=== PATIENT | female | born 1975 | race Two or more races ===

== ENCOUNTER → 2023-12-01 15:02 | Outpatient (REF) | payer OTHER, SELFPAY ==
--- NOTE | 2023-12-01 15:06 | CA_ITS ---
Transthoracic Echocardiogram Patient (Last, First, Middle): Nery Kingsley, Gender: Female Date of : 1975 Age: 48 Procedure Date: 12/01/2023 Procedure Type: Transthoracic Echocardiogram Location: OP Height: 162.56 cm Weight: 83.92 kg BSA: 1.89 m2 Heart Rate: bpm BP: 146 / 88 mmHg Community Relations Manager: ARUNA Referring MD: Bello Rodriguez COLLEGE COACH Symptoms: I10 HTN NORA.2 PALPITATIONS Study Quality: Adequate ECG Rhythm: Sinus Conclusions: - The left ventricular systolic function is normal. The calculated ejection fraction is 64% by biplane method. - No obvious valvular pathology seen on this study. - There is mild dilatation of the ascending aorta measuring 3.90 cm. Findings Left Ventricle Normal left ventricular cavity size. There is normal left ventricular wall thickness. The left ventricular systolic function is normal. The calculated ejection fraction is 64% by biplane method. There is no evidence of regional wall motion abnormalities. LV peak GLS -18.9%. Right Ventricle Normal right ventricular cavity size and systolic function. Atria Both atria are normal in size. Aortic Valve There is a normal trileaflet aortic valve. There is no aortic valve stenosis. There is no aortic valve regurgitation. Mitral Valve The mitral valve appears normal. There is trace mitral valve regurgitation. There is no mitral valve stenosis. Pulmonic Valve The pulmonic valve is likely normal. Tricuspid Valve Normal tricuspid valve structure. There is trace tricuspid valve regurgitation. There is no evidence of pulmonary hypertension. Great Vessels The aortic arch is normal in size. There is mild dilatation of the ascending aorta measuring 3.90 cm. Venous The inferior vena cava is normal in size and collapses greater than 50% with inspiration. Pericardium/Pleural There is no evidence of pericardial effusion. Prior Study Comparison No prior study available for comparison. Recommendations, Care & Conclusions No obvious valvular pathology seen on this study. Measurements 2D Linear Measurements IVSd: 0.80 0.6-0.9/0.6-1.0 cm LVIDd: 4.67 3.9-5.3/4.2-5.9 cm LVIDd Index: 2.47 2.4-3.2/2.2-3.1 cm/m2 LVIDs: 3.03 2.0-3.6 cm LVPWd: 0.80 0.7-1.1 cm LA Diam: 3.20 2.7-3.8/3.0-4.0 cm LAIDs Index: 1.69 1.5-2.3 cm/m2 LV Mass: 150.92 67-162/88-224 g LV Mass Index: 79.85 43-95/49-115 g/m2 LVOT Diam: 2.10 3.0+(-)1.3 cm 2D Systolic Function EF 4C: 62.00 >55% EF 2C: 66.20 >55% EF BiP: 64.10 >55% Mitral Valve MV Pk E: 0.51 MV PK A: 0.45 MV Decel Time: 279.00 E/A: 1.10 E'Lateral: 10.70 E'Medial: 7.29 E/E' Med: 7.10 E/E' Lat: 4.80 PHT: 82.00 MVA PHT: 2.68 Decel [place]: 1.84 Aortic Valve AoV Pk Kody: 1.27 AoV Mn Kody: 0.84 AoV VTI: 0.31 AoV Pk Grad: 6.00 Aov Mn Grad: 3.00 BENSON Cont.VTI: 2.62 LVOT LVOT Pk Kody: 1.07 LVOT Mn Kody: 0.68 LVOT VTI: 0.24 LVOT Pk Grad: 5.00 LVOT Mn Grad: 2.00 LVOT Diam: 2.10 LVOT Area: 3.46 Diastolic Function MV Pk E: 0.51 MV Pk A: 0.45 E/A: 1.10 E'Medial: 7.29 E/E' Med: 7.10 E' Laterial: 10.70 E/E' Lat: 4.80 Right Ventricle TAPSE (mm): 22.00 TVS' Kody: 9.90 Tricuspid Valve TR Pk Kody: 2.05 TR Pk Grad: 17.00 RA Press: 3.00 RVSP: 20.00 Great Vessels Aorta Sinus of Valsalva: 3.87 2.0-3.[address] [place]: 2.80 1.7-3.4 cm Ao Asc: 3.90 2.1-3.4 cm Ao Arch: 2.90 Updated in Other Vendor System with Status of Final Yfn Browne MD electronically signed on 12/03/2023 9:23:05 AM with status of Final
== END ==
LOC: HO.CARD 15:02
PROVIDERS: PCP Nurse Practitioner Family; Visit Provider Nurse Practitioner Family
DX: R00.2 Palpitations (principal); I10 Essential (primary) hypertension
CPT/HCPCS: 93306; 93356

== ENCOUNTER → 2023-12-01 15:06 | Outpatient (BNV) | payer OTHER, SELFPAY | PROVIDERS: PCP Nurse Practitioner Family; Visit Provider Internal Medicine | DX: R00.2 Palpitations (principal); I10 Essential (primary) hypertension | CPT/HCPCS: 93306 ==

== ENCOUNTER 2023-12-02 15:46 | Outpatient (REF) | payer OTHER, SELFPAY ==
--- NOTE | ~2023-12-02 | MR_ITS ---
EXAMINATION: MRI PELVIS WITHOUT CONTRAST CLINICAL INFORMATION: Reason for Exam URETHRAL DIVERTICULUM COMPARISON: No pertinent priors currently available. TECHNIQUE: Multiple routine MRI sequences through the pelvis were obtained without intravenous contrast. FINDINGS: UTERUS: The uterus is anteverted. The uterus measures 8.9 x 4.4 x 5.9 cm. The endometrial stripe 3 mm in thickness. Junctional zone is preserved. There are few fibroids present. Left subserosal fibroid measures 2.8 x 2.7 x 2.8 cm. Posterior subserosal fibroid measures 1.6 x 1.8 x 1.4 cm. CERVIX: Few cervical nabothian cysts. VAGINA: Unremarkable. RIGHT OVARY: Right adnexal cyst measures 3.2 x 2.5 x 2.2 cm. LEFT OVARY: Not visualized. KIDNEYS: Two normally positioned kidneys are seen. No hydronephrosis. BLADDER: Unremarkable. No evidence of urethral diverticulum. PELVIC FREE FLUID: No free fluid or ascites. LYMPH NODES: No pathologically enlarged lymph nodes. MR/MR pelvis wo con IMPRESSION: Fibroid uterus. No evidence of urethral diverticulum. Right adnexal cyst measures 3.2 x 2.5 x 2.2 cm. Findings are overwhelmingly likely to represent a benign functional cyst. No follow-up imaging recommended.
== END 2023-12-02 15:47 | disposition home or self-care (01) ==
LOC: HO.MRI 15:46
PROVIDERS: PCP Nurse Practitioner Family; Visit Provider Nurse Practitioner Family
DX: N36.1 Urethral diverticulum (principal)
CPT/HCPCS: 72195

== ENCOUNTER 2024-02-28 14:55 | Outpatient (AMB) | payer OTHER, SELFPAY ==
--- NOTE | 2024-02-28 14:56 | A.OFFVIS_ITS ---
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 She has a pleasant 49-year-old who has longstanding history of hypertension. She said many years ago she would hypertension was treated with lisinopril and did well over time and then lost 40 lb of weight and a blood pressure got better control and she came of lisinopril therapy. However more recently she gained weight back again and started noticing symptoms of palpitation elevated blood pressure. She was then started on lisinopril therapy but without much effect or a month and then amlodipine was added to her regimen. A blood pressure is not much better controlled. Symptoms of palpitations have dissipated. When she is to get palpitation she describes that these palpitation would happen randomly even including rest when she was relaxed and would have rapid heart rate up to 130-140 beats per minute recorded by heart rate monitor on her watch. Symptoms then also would subside suddenly. The symptoms have now subsided and she feels well. She has no exertional symptoms. Denies any symptoms of exertional chest pain, shortness of breath. No lightheadedness, syncope. No recent changes in his systemic health. She had echocardiogram done in November which showed normal LV systolic function without valvular abnormality with mildly dilated ascending aorta at 3.9 cm. No family history of ascending aortic aneurysm. [facility] Medical History (Updated 02/28/24 @ 15:25 by Tim Bhandari MD) HTN (hypertension) Ascending aorta enlargement Review of Systems Const Denies chills, Denies daytime sleepiness, Denies fatigue, Denies fever(s), Denies frequent falls, Denies poor appetite, Denies snoring, Denies stops breathing during sleep, Denies weakness, Denies weight gain and Denies weight loss Eyes Denies loss of vision ENT Denies dizziness and Denies hearing loss Card Denies chest pain, Denies claudication, Denies leg edema, Denies lightheadedness, Denies palpitations, Denies dyspnea, Denies dyspnea on exertion and Denies orthopnea Resp Denies cough, Denies excessive phlegm production, Denies dyspnea, Denies dyspnea on exertion, Denies snoring and Denies wheezing GI Denies abdominal pain, Denies hematochezia, Denies change in bowel habits, Denies nausea and Denies vomiting Denies urinary frequency and Denies dysuria Musc Denies arthralgias, Denies muscle weakness, Denies numbness and Denies other (frequent falls) Skin/Breast Denies nail changes and Denies rash Neuro Denies Abnormal speech present, Denies dizziness, Denies frequent falls, Denies loss of vision, Denies memory loss, Denies numbness and Denies weakness Psych Denies depression and Denies memory loss Endo Denies fatigue and Denies palpitations Zev/Lymph Reports easy bruising and Reports other (anemia) Aller/Immun Denies wheezing Physical Exam Vital Signs: Last Vital Signs Pulse 83 02/28/24 14:57 BP 108/70 02/28/24 14:57 BMI result Body Mass Index 31.0 Neuro Speech: No Abnormal speech present Office Procedures EKG Details: EKG shows normal sinus rhythm with normal EKG 98161-[id number], Complete Assessment & Plan Assessment & Plan (1) HTN (hypertension): Code(s): I10 - Essential (primary) hypertension Category: Medical Plan: Patient with longstanding history of hypertension which appears to be weight related. Since then she has been treated and currently a blood pressure is very well optimized on lisinopril and amlodipine therapy. Advised for now to continue current therapy. As she continues to lose weight and has healthy lifestyle modifications and if blood pressure gets lower eventually lisinopril can be tapered. Advised to continue monitor blood pressure at home maintain a log. Goal blood pressure less than 20 systolic. Low-salt diet was discussed. Stress mitigation strategies were discussed she understands management well. (2) Ascending aorta enlargement: Code(s): I77.89 - Other specified disorders of arteries and arterioles Category: Medical Plan: Noted mildly enlarged ascending aorta at 3.9 cm. She has no clear family history of ascending aortic aneurysm. Most likely hypertension related. Management of this was discussed. Continue aggressive blood pressure management as above. Advised to avoid sudden strenuous isometric exercise. She does not require any surgical intervention at this point time. Will need annual echocardiogram for surveillance. (3) Palpitations: Code(s): R00.2 - Palpitations Plan: Symptoms of palpitation which has not dissipated. Could represent SVT although there are no documented EKGs during this time. We discussed about low yield for further workup at this point time given her symptoms have improved. Advised to consider smart phone based EKG device if her symptoms were to recur to establish diagnosis. Avoidance of stimulants was discussed. (4) Preoperative cardiovascular examination: Code(s): Z01.810 - Encounter for preprocedural cardiovascular examination Plan: Preoperative cardiovascular risk stratification prior to gynecologic surgery under sedation. This is consider low to intermediate risk surgery. She has no active symptoms and has more than 4 Mets of physical activity and capacity. No further workup is indicated. She is optimized to undergo surgery with low risk for perioperative cardiovascular morbidity mortality. Continue her antihypertensives in the perioperative time. Will follow up in the clinic in 1 year's time after an echocardiogram. Thank you for allowing me to partake in her care Coding Level of Care Code New Pt Level 4 (15895) Diagnoses HTN (hypertension) I10 Ascending aorta enlargement I77.89 Palpitations R00.2 Preoperative cardiovascular examination Z01.810 CPT Codes EKG - CPT: 15482-[id number], Complete ([id number])
[2024-02-28 14:57] VITALS: BP 108/70; PULSE 83; BMI 31.0
== END 2024-02-28 15:27 | disposition home or self-care (01) ==
PROVIDERS: PCP Nurse Practitioner Family; Visit Provider Internal Medicine Cardiovascular Disease
DX: I10 Essential (primary) hypertension (principal); I77.89 Other specified disorders of arteries and arterioles; R00.2 Palpitations; Z01.810 Encounter for preprocedural cardiovascular examination
CPT/HCPCS: 93010; 99204

== ENCOUNTER → 2024-02-28 14:55 | Outpatient (BNVA) | payer OTHER, SELFPAY | PROVIDERS: PCP Nurse Practitioner Family; Visit Provider Internal Medicine Cardiovascular Disease | DX: Z01.810 Encounter for preprocedural cardiovascular examination (principal); I10 Essential (primary) hypertension; I77.89 Other specified disorders of arteries and arterioles; R00.2 Palpitations | CPT/HCPCS: 93005 ==

== ENCOUNTER 2024-12-14 09:36 | Outpatient (REF) | payer OTHER, SELFPAY ==
--- OUTSIDE RECORDS SUMMARY | 2024-12-14 11:26 | XMS_ITS | Clinical Summary ---
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 [employer] Name Role Phone Unavailable Primary Care Provider [...] Description 01/14/2025 2:00 PM EDT Appointment [facility] Ultrasound [address] [place] [phone] Health Maintenance Due Date Last Done Comments [...] Procedure Name Priority Date/Time Associated Diagnosis Comments [facility] SCREENING DIGITAL Routine 01/06/2024 3:33 PM EDT Encounter for screening mammogram for malignant neoplasm of breast from Last 3 Months or Most Recently Relevant to Health Maintenance Results * [facility] SCREENING DIGITAL (01/06/2024 3:33 PM EDT) Anatomical Region Laterality Modality Mammography 01/06/2024 3:10 PM EDT Narrative 01/06/2024 3:33 PM EDT [facility] Diagnostic Imaging Department [address] [place] [address] Patient: ??ROBERTA,NU ?/Age/Sex: 1975 - - Unit#: ??[id number] ? Location/Status: ??SPDIMAM/REG CLI ? Mnemonic/Ordering Site: ??DIGSC/SPMAM Ordering Physician: ??SAM LARKIN MD Gautam Screening Digital - 01/06/24 - 1521 Report Status:Signed EXAM: [facility] Screening Digital EXAM DATE AND TIME: 01/06/2024 3:22 PM HISTORY: ??Annual screening COMPARISON: ??Multiple exams dating back to 2016 TECHNIQUE: Bilateral digital breast tomosynthesis was performed in the CC and MLO projections. Computer aided detection with Novavax 3D 3.1 was employed. TISSUE DENSITY: b. [...] Procedure Note Melissa Tillman MD - 06/11/2024 [facility] Diagnostic Imaging Department [address] [place] [address] Patient: KINGSLEYNU/Age/Sex: 1975 - 48 - F Unit#: [id number] Location/Status: SPDIMAM/REG CLI Mnemonic/Ordering Site: DIGSC/SPMAM Ordering Physician: SAM LARKIN MD Gautam Screening Digital - 01/06/24 - 1521 Report Status:Signed EXAM: [facility] Screening Digital EXAM DATE AND TIME: 01/06/2024 3:22 PM HISTORY: Annual screening COMPARISON: Multiple exams dating back to 2016 TECHNIQUE: Bilateral digital breast tomosynthesis was performed in the CCand MLO projections. Computer aided detection with Novavax 3D 3.1was employed. TISSUE DENSITY: b. There [...] Most Recently Relevant to Health Maintenance Insurance [facility]
[2024-12-14 14:31] LABS: Influenza A PCR POSITIVE (Negative); Influenza B PCR NEGATIVE (Negative); Resp Syncy Virus RNA Qual PCR NEGATIVE (Negative); SARS COV2 PCR INHOUSE NEGATIVE (Negative)
== END 2024-12-14 09:37 | disposition home or self-care (01) ==
LOC: HO.LAB 09:36
PROVIDERS: PCP Nurse Practitioner Family; Visit Provider Physician Assistant
DX: B34.9 Viral infection, unspecified (principal); R05.8 Other specified cough
CPT/HCPCS: 0241U

== ENCOUNTER 2024-12-14 09:36 | Outpatient (AMB) | payer OTHER, SELFPAY ==
--- OUTSIDE RECORDS SUMMARY | 2024-12-14 10:11 | XMS_ITS | Clinical Summary ---
Author Organization [employer] [facility] ity Address [address] [place] [address] Care Team Providers Care Garden Consultant Name Role Phone Unavailable Primary Care Provider Unavailabl e Social History Tobacco Use Types Packs/Day Years Used Date Smoking Tobacco: Never Assessed Comments Unknown Sex and Gender Information Value Date Recorded Sex Assigned at Not on file Legal Sex Female 6:15 PM EST Gender Identity Not on file Sexual Orientation Not on file Plan of Treatment Upcoming Encounters Date Type Department Care Team (Late st Contact Info) Description 01/14/2025 2:00 PM EDT Appointment [facility] Ultrasound [address] [place] [phone] Health Maintenance Due Date Last Done Comments COVID-19 Vaccine (#1) 02/21/1980 DTaP,Tdap,and Td Vaccines (1 - Tdap) 1994 Pneumococcal Vaccine: Pediatrics (0 to 5 Years) and At-Risk Patients (6 to 64 Years) (1 of 2 - PCV) 1994 Cervical Cancer Screening: Pap Smear 02/21/1996 Cholesterol Screening (Lipid Panel) 10/06/2022 Colorectal Cancer Screening: Colonoscopy 10/06/2022 Depression Screening 10/06/2022 HIV Screening 10/06/2022 Hepatitis C Screening 10/06/2022 Social Influencers of Health Screening 10/06/2022 Influenza Vaccine (#1) 2024 Breast Cancer Screening 01/05/2026 01/06/20 24, 12/29/2022, 12/20/2021, Additional history exists Hepatitis B Vaccines Completed 03/13/2020, 01/09/2020, 11/05/2019 HIB Vaccines Aged Out No longer eligi ble based on patient's age to complete this topic HPV Vaccines Aged Out No longer eligi ble based on patient's age to complete this topic Hepatitis A Vaccines Aged Out No long er eligible based on patient's age to complete this topic IPV Vaccines Aged Out No longer eligi ble based on patient's age to complete this topic MMR Vaccines Aged Out No longer eligi ble based on patient's age to complete this topic Meningococcal ACWY Vaccine Aged Out N o longer eligible based on patient's age to complete this topic Meningococcal B Vacine Aged Out No lo nger eligible based on patient's age to complete this topic RSV Immunization Patients Under 20 months Aged Out No longer eligible based on patient's age to complete this topic Varicella Vaccines Aged Out No longer eligible based on patient's age to complete this topic Procedures Procedure Name Priority Date/Time Associated Diagnosis Comments [facility] SCREENING DIGITAL Routine 01/06/2024 3:33 PM EDT Encounter for screening mammogram for malignant neoplasm of breast from Last 3 Months or Most Recently Relevant to Health Maintenance Results * [facility] SCREENING DIGITAL (01/06/2024 3:33 PM EDT) Anatomical Region Laterality Modality Mammography 01/06/2024 3:10 PM EDT Narrative 01/06/2024 3:33 PM EDT [facility] Diagnostic Imaging Department [address] [place] [address] Patient: ??ROBERTA,NU ?/Age/Sex: 1975 - - Unit#: ??[id number] ? Location/Status: ??SPDIMAM/REG CLI ? Mnemonic/Ordering Site: ??DIGSC/SPMAM Ordering Physician: ??SAM LARKIN MD Gautam Screening Digital - 01/06/24 - 1521 Report Status:Signed EXAM: [facility] Screening Digital EXAM DATE AND TIME: 01/06/2024 3:22 PM HISTORY: ??Annual screening COMPARISON: ??Multiple exams dating back to 2016 TECHNIQUE: Bilateral digital breast tomosynthesis was performed in the CC and MLO projections. Computer aided detection with Mohive 3D 3.1 was employed. TISSUE DENSITY: b. There are scattered areas of fibroglandular density. FINDINGS: Possible developing asymmetry in the outer left breast seen on the MLO view. No associated calcifications or architectural distortion. ??The right breast is unremarkable. IMPRESSION: Possible developing asymmetry in the outer left breast seen on the MLO view. Recommend diagnostic mammogram of the left breast with spot compression MLO tomographic views. BI-RADS: ??Category 0: Incomplete - Need Additional Imaging Evaluation Dictating Physician: ??MELISSA TILLMAN MD Electronically Signed by: ??MELISSA TILLMAN MD Dic Date/Time: ??01/06/24 1531 Sign date/Time: ??01/06/24 1533 Procedure Note Melissa Tillman MD - 06/11/2024 [facility] Diagnostic Imaging Department [address] [place] [address] Patient: KINGSLEYNU/Age/Sex: 1975 - 48 - F Unit#: [id number] Location/Status: SPDIMAM/REG CLI Mnemonic/Ordering Site: DIGSC/SPMAM Ordering Physician: SAM LARKIN MD Gautam Screening Digital - 01/06/24 - 1521 Report Status:Signed EXAM: [facility] Screening Digital EXAM DATE AND TIME: 01/06/2024 3:22 PM HISTORY: Annual screening COMPARISON: Multiple exams dating back to 2016 TECHNIQUE: Bilateral digital breast tomosynthesis was performed in the CCand MLO projections. Computer aided detection with Mohive 3D 3.1was employed. TISSUE DENSITY: b. There are scattered areas of fibroglandular density. FINDINGS: Possible developing asymmetry in the outer left breast seen on the MLOview. No associated calcifications or architectural distortion. The rightbreast is unremarkable. IMPRESSION: Possible developing asymmetry in the outer left breast seen on the MLOview. Recommend diagnostic mammogram of the left breast with spot compressionMLO tomographic views. BI-RADS: Category 0: Incomplete - Need Additional Imaging Evaluation Dictating Physician: MELISSA TILLMAN MD Electronically Signed by: MELISSA TILLMAN MD Dic Date/Time: 01/06/24 1531 Sign date/Time: 01/06/241532 Sam Crocker MD IMG BI PROCEDURES Final Result from Last 3 Months or Most Recently Relevant to Health Maintenance Insurance [facility]
[2024-12-14 10:13] VITALS: BP 118/80; PULSE 86; TEMP 36.8; O2SAT 98; BMI 30.4
--- NOTE | 2024-12-14 10:13 | AM.OFFWIN_ITS ---
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 Patient Tobacco Use Status: Never used Tobacco Allergies No Known Allergies Allergy (Verified 12/14/24 10:14) Do you need a note to return to daycare/school/sports/work: Yes HPI HPI Comments History of Present Illness Details History - The patient is a 49-year-old female pr esenting with a cough. - Vomiting and diarrhea began six days a go and resolved by 3 days ago. - Cough developed following the resoluti on of gastrointestinal symptoms, persisting over the last 3 days with severity increasing. - Associated symptoms include lightheade dness and throat congestion, especially when supine. - She has not experienced fever or respi ratory distress. - she is not using any OTC medications t o treat her symptoms - There is a known exposure to influenza within the household as her is diagnosed and receiving treatment. Physical Exam General: Cooperative, healthy appearing, comfortable and no acute distress Orientation/consciousness: Patient oriented x3 Limitations: No limitations Head: Normal to inspection Ears: Hearing grossly normal bilaterally, external ears normal and TM's w/cerumen bilaterally Nose: Normal external nose present, Normal nares present and No nasal discharge present Face and sinus: Normal facial exam and Yes sinuses nontender Mouth: Normal oral and palatal mucosa present and moist mucous membranes Throat: Yes tonsils normal, Yes uvula midline. Posterior oropharynx erythema Eyes: Appearance normal, both eyes and all related structures Neck: Normal visual inspection Respiratory: Clear to auscultation bilaterally. Normal respiratory effort, able to speak in complete sentences, Actively coughing, no respiratory distress, not tachypneic, no tripod positioning and no use of accessory muscles Cardiovascular: Regular rate and rhythm. Normal S1 and S2 Skin: No rashes or lesions noted Neuro: Patient oriented x3 Extremities: Normal to inspection and Yes no clubbing, cyanosis or edema [facility] Medical History (Updated 12/14/24 @ 10:30 by Jessica Reinoso PA-C) HTN (hypertension) Ascending aorta enlargement Social History Patient Tobacco Use Status: Never used Tobacco Review of Systems Const All systems reviewed & are unremarkable except as noted in HPI and below Physical Exam Vital Signs: Last Vital Signs Temp 98.2 F 12/14/24 10:13 Pulse 86 12/14/24 10:13 BP 118/80 12/14/24 10:13 Pulse Ox 98 12/14/24 10:13 Oxygen Delivery Method Room Air 12/14/24 10:13 BMI result Body Mass Index 30.4 Assessment & Plan Assessment & Plan (1) Systemic viral illness: Code(s): B34.9 - Viral infection, unspecified Plan: VSS, pt well appearing and PE unremarkable. Considering the patient's symptoms, potential influenza exposure, and as the patient is outside the window for Tamiflu treatment, symptomatic management will be prioritized. A decongestant, Julieta D, alongside Tessalon Perles as a nightly cough suppressant will be prescribed. Ibuprofen can be used to address sore throat inflammation, and Benadryl may be added for its drying effects. The patient will be advised to maintain hydration and ensure rest. Diagnostic testing for influenza, COVID-19, and RSV has been initiated. Patient was informed and verbally consented to the use of an ambient scribe for clinic note documentation during this visit Orders: Orders SARS-CoV2/FLU/RSV Today R09.89 - Other specified symptoms and signs involving the circulatory and respiratory systems Medications: New benzonatate 200 mg PO .qhs PRN 14 caps 0RF cough Coding Level of Care Code New Pt Level 3 (10228) Diagnoses Systemic viral illness B34.9
== END 2024-12-14 10:38 | disposition home or self-care (01) ==
PROVIDERS: PCP Nurse Practitioner Family; Visit Provider Physician Assistant
DX: B34.9 Viral infection, unspecified (principal)

== ENCOUNTER 2025-01-07 14:31 | Outpatient (REF) | payer OTHER, SELFPAY ==
[2025-01-10 11:45] LABS: H Pylori Breath Test Negative (Negative)
== END 2025-01-07 14:32 | disposition home or self-care (01) ==
LOC: HO.LAB 14:31
PROVIDERS: PCP Nurse Practitioner Family; Visit Provider Internal Medicine
DX: K29.70 Gastritis, unspecified, without bleeding (principal); R10.9 Unspecified abdominal pain
CPT/HCPCS: 83013

== ENCOUNTER 2025-01-07 14:31 | Outpatient (AMB) | payer OTHER, SELFPAY ==
--- NOTE | 2025-01-07 14:42 | A.OFFVIS_ITS ---
Vital Signs 01/07/25 14:48 Height 5 ft 4 in Weight 174 lb 2.643 oz BMI 29.9 BP 111/81 Blood Pressure Location Lt brachial Position Sitting Pulse 98 Intake Visit Reasons: Abdominal pain Intake Note: Nery presents in the office as a new patient for abdominal pains. CC: She states that the pains in the stomach are in the LUQ and sometimes in the epigastric region - denies irregular bowel movements. Allergies No Known Allergies Allergy (Verified 01/07/25 14:49) HPI Comments Details: 49 y.o F with subacute onset of abd pain. reports L sided pain that radiates to the R side. No N/V. Did notice some loss of appetite and bloating. Triggers are certain foods. Fasting makes it worse. BMs are ok. Thinks may be related to victoza- took it for half a year last year and then a month after she stopped it, the sx started. Weight loss with victoza but no ongoing unintentional weight loss. Has not been taking anything for this. Has not had CRC screening yet. [facility]LY [facility] Medical History HTN (hypertension) Ascending aorta enlargement Social History Patient Tobacco Use Status: Never used Tobacco Review of Systems Const All systems reviewed & are unremarkable except as noted in HPI and below Physical Exam Vital Signs: Last Vital Signs Pulse 98 01/07/25 14:48 BP 111/81 01/07/25 14:48 BMI result Body Mass Index 29.9 No apparent distress Nonicteric Abdomen soft, nondistended Alert and oriented x3, normal gait Results Reviewed Results Reviewed: US Abd 10/20/24: Suboptimal examination due to overlying bowel gas and poor acoustic windows. Liver: Normal in size and echotexture. No focal lesion is seen. Main portal vein patent with normal hepatopetal direction of flow. Gallbladder: Status post cho lecystectomy. Biliary Tree: No intrahepatic bile duct dilation is identified. Common duct not definitively visualized. Pancreas: Mostly obscured by overlying bowel gas. Spleen: Normal in size and echotexture. Assessment & Plan Assessment & Plan (1) Abdominal pain: Code(s): R10.9 - Unspecified abdominal pain Category: Medical (2) Gastritis: Code(s): K29.70 - Gastritis, unspecified, without bleeding Category: Medical (3) Colon cancer screening: Code(s): Z12.11 - Encounter for screening for malignant neoplasm of colon Category: Medical Plan 1. Abd pain: Ddx includes PUD, gastritis, esophagitis, celiac. Plan: -Labs as below -H Pylori test -PPI trial -EGD to be booked 2. CRC screening: Revere to be booked at the same time as egd. Plan: - PEG prep Rxed and instructions reviewed Follow up after scopes Orders: Orders Complete Blood Count no Diff Today R10.9 - Unspecified abdominal pain Comprehensive Met. Panel Today R10.9 - Unspecified abdominal pain Transglutaminase IgA Today R10.9 - Unspecified abdominal pain FL upper GI w Ba Swallow Today R10.9 - Unspecified abdominal pain H Pylori Breath Test Today K29.70 - Gastritis, unspecified, without bleeding, R10.9 - Unspecified abdominal pain C Reactive Protein Today R10.9 - Unspecified abdominal pain Immunoglobulin A Today R10.9 - Unspecified abdominal pain Medications: New peg 3350-electrolytes 236-22.74-6.74 -5.86 gram (Golytely) as per split prep instructions, until fecal effluent is clear 240 mL PO Q10M 4,000 mL 0RF colonoscopy omeprazole 20 mg PO DAILY 90 days 90 caps 0RF K29.70 - Gastritis, unspecified, without bleeding Coding Level of Care Code New Pt Level 4 (69484) Diagnoses Abdominal pain R10.9 Gastritis K29.70 Colon cancer screening Z12.11
[2025-01-07 14:48] VITALS: BP 111/81; PULSE 98; BMI 29.9
--- OUTSIDE RECORDS SUMMARY | 2025-01-07 17:04 | XMS_ITS | Clinical Summary ---
Author Organization [facility] ity Address [address] [place] [address] Care Team Providers Care Customer Training Specialist Name Role Phone Physician, No Pcp Primary Care Provider Unavaila ble Social History Tobacco Use Types Packs/Day Years [...] Info) Description 01/14/2025 2:00 PM EDT Appointment [facility] Ultrasound [address] [place] [phone] Health Maintenance Due Date Last Done Comments [...] Procedure Name Priority Date/Time Associated Diagnosis Comments [facility] SCREENING DIGITAL Routine 01/06/2024 3:33 PM EDT Encounter for screening mammogram for malignant neoplasm of breast from Last 3 Months or Most Recently Relevant to Health Maintenance Results * [facility] SCREENING DIGITAL (01/06/2024 3:33 PM EDT) Anatomical Region Laterality Modality Mammography 01/06/2024 3:10 PM EDT Narrative 01/06/2024 3:33 PM EDT [facility] Diagnostic Imaging Department [address] [place] [address] Patient: ??KINGSLEY,NU ?/Age/Sex: 1975 - Unit#: ??[id number] ? Location/Status: ??SPDIMAM/REG CLI ? Mnemonic/Ordering Site: ??DIGSC/SPMAM Ordering Physician: ??SAM LARKIN MD Gautam Screening Digital - 01/06/24 - 1521 Report Status:Signed EXAM: [facility] Screening Digital EXAM DATE AND TIME: 01/06/2024 3:22 PM HISTORY: ??Annual screening COMPARISON: ??Multiple exams dating back to 2016 TECHNIQUE: Bilateral digital breast tomosynthesis was performed in the CC and MLO projections. Computer aided detection with Outright 3D 3.1 was employed. TISSUE DENSITY: b. [...] Procedure Note Melissa Tillman MD - 06/11/2024 [facility] Diagnostic Imaging Department [address] [place], [place] [id number] Patient: KINGSLEYNU D.O.B./Age/Sex: 1975 - 48 - F Unit#: [id number] Location/Status: SPDIMAM/REG CLI Mnemonic/Ordering Site: DIGSC/SPMAM Ordering Physician: SAM LARKIN MD Gautam Screening Digital - 01/06/24 - 1521 Report Status:Signed EXAM: [facility]autam Screening Digital EXAM DATE AND TIME: 01/06/2024 3:22 PM HISTORY: Annual screening COMPARISON: Multiple exams dating back to 2016 TECHNIQUE: Bilateral digital breast tomosynthesis was performed in the CCand MLO projections. Computer aided detection with Outright 3D 3.1was employed. TISSUE DENSITY: b. There [...] MD Dic Date/Time: 01/06/24 1531 Sign date/Time: 01/06/24 153 Sam Crocker MD IMG BI PROCEDURES Final Result from Last 3 Months or Most Recently Relevant to Health Maintenance Insurance [facility] Care Teams Customer Training Specialist Relationship Specialty Start Date End Date Physician, No Pcp PCP - General 01/07/25
== END 2025-01-07 15:24 | disposition home or self-care (01) ==
LOC: HO.HGI 14:32
PROVIDERS: PCP Nurse Practitioner Family; Visit Provider Internal Medicine
DX: R10.9 Unspecified abdominal pain (principal); K29.70 Gastritis, unspecified, without bleeding; Z12.11 Encounter for screening for malignant neoplasm of colon
CPT/HCPCS: 99204

== ENCOUNTER 2025-01-08 07:14 | Outpatient (REF) | payer OTHER, SELFPAY ==
[2025-01-08 08:08] LABS: Hematocrit 42.1 % (37.0-47.0); Hemoglobin 13.8 g/dl (12.0-16.0); Mean Corpuscular HGB Conc 32.8 g/dl (31.0-35.0); Mean Corpuscular Hemoglobin 28.4 pg (27.0-33.0); Mean Corpuscular Volume 86.6 fL (80.0-98.0); Mean Platelet Volume 10.6 fL (9.4-12.3); Platelet Count 361 X10*3/uL (160-400); Red Blood Count 4.86 X10*6/uL (4.20-5.50); Red Cell Distribution Width 14.5 % (11.0-16.0); White Blood Count 6.5 X10*3/uL (4.8-10.8)
[2025-01-08 08:46] LABS: Alanine Aminotransferase 21 U/L (0-31); Albumin Level 4.2 g/dL (3.5-5.0); Alkaline Phosphatase 78 U/L (39-117); Anion Gap 12 (12-20); Aspartate Amino Transferase 19 U/L (5-31); Bilirubin Total 0.5 mg/dL (0.0-1.0); Blood Urea Nitrogen 17 mg/dL (9-16); C Reactive Protein 0.32 mg/dL (< or = 0.50); Calcium 9.2 mg/dL (8.4-10.2); Carbon Dioxide 24 mmol/L (22-29); Chloride 108 mmol/L (96-108); Estimated Glomerular Filt Rate > 60; Glucose Random 91 mg/dL (60-115); Potassium 4.1 mmol/L (3.3-5.1); Sodium 140 mmol/L (135-145); Total Protein 7.9 g/dL (6.5-8.0)
[2025-01-09 15:33] LABS: Immunoglobulin A 146 mg/dL (47-310)
[2025-01-09 20:58] LABS: Transglutaminase IgA <1.0 U/mL
== END 2025-01-08 07:15 | disposition home or self-care (01) ==
LOC: HO.LAB 07:14
PROVIDERS: PCP Nurse Practitioner Family; Visit Provider Internal Medicine
DX: R10.9 Unspecified abdominal pain (principal)
CPT/HCPCS: 36415; 80053; 82784; 85027; 86140; 86364

== ENCOUNTER → 2025-02-06 13:21 | Outpatient (REF) | payer OTHER, SELFPAY ==
--- NOTE | 2025-02-06 13:46 | CA_ITS ---
Transthoracic Echocardiogram Patient (Last, First, Middle): Nery Kingsley, Gender: Female Date of : 1975 Age: 49 Procedure Date: 02/06/2025 Procedure Type: Transthoracic Echocardiogram Location: OP Height: 162.56 cm Weight: 75.75 kg BSA: 1.81 m2 Heart Rate: bpm BP: 112 / 74 mmHg Logistics Manager: TO Referring MD: Tim Bhandari MD Environmental Solutions Engineer: Tim Bhandari MD Symptoms: I77.89 - Other specified disorders of arteries and arterioles Study Quality: Adequate w Definity ECG Rhythm: Sinus Conclusions: - 1. Mildly dilated ascending aorta at 3.9 cm 2. Normal LV ejection fraction 60 65% 3. Normal cardiac valvular Dopplers 4. No gross pericardial effusion Findings Procedure Information Contrast agent, definity, is being given per protocol without apparent complications. Left Ventricle Normal left ventricular size, thickness, and systolic function. The visually estimated ejection fraction is between 60-65%. Spectral Doppler is indicative of a normal filling pattern. Right Ventricle Normal right ventricular cavity size and systolic function. Atria Both atria are normal in size. Interatrial shunt cannot be excluded. Aortic Valve Normal aortic valve structure and function. There is no aortic valve stenosis. There is no aortic valve regurgitation. Mitral Valve Normal mitral valve structure and function. There is trace mitral valve regurgitation. There is no mitral valve stenosis. Pulmonic Valve The pulmonic valve is likely normal. There is trace pulmonic valve regurgitation. Tricuspid Valve Normal tricuspid valve structure. There is trace tricuspid valve regurgitation. The right ventricular systolic pressure is normal. The right ventricular systolic pressure is 14 mmHg. Normal right atrial pressure. There is no evidence of pulmonary hypertension. Great Vessels The pulmonary artery was not well visualized. There is mild dilatation of the ascending aorta measuring 3.90 cm. There is no evidence of plaque in the aorta. Venous The inferior vena cava is normal in size and collapses greater than 50% with inspiration. Pericardium/Pleural There is no evidence of pericardial effusion. Prior Study Comparison No significant change compared to prior study dated: 12/01/2023. Measurements 2D Linear Measurements IVSd: 0.67 0.6-0.9/0.6-1.0 cm LVIDd: 4.80 3.9-5.3/4.2-5.9 cm LVIDd Index: 2.65 2.4-3.2/2.2-3.1 cm/m2 LVIDs: 3.33 2.0-3.6 cm LVPWd: 0.66 0.7-1.1 cm LA Diam: 3.30 2.7-3.8/3.0-4.0 cm LAIDs Index: 1.82 1.5-2.3 cm/m2 LV Mass: 124.90 67-162/88-224 g LV Mass Index: 69.00 43-95/49-115 g/m2 LVOT Diam: 2.10 3.0+(-)1.3 cm 2D Systolic Function EF 4C: 61.20 >55% EF 2C: 61.50 >55% EF BiP: 60.80 >55% Mitral Valve MV Pk E: 0.48 MV PK A: 0.55 MV Decel Time: 183.00 E/A: 0.90 E'Lateral: 9.68 E'Medial: 5.98 E/E' Med: 8.00 E/E' Lat: 5.00 PHT: 54.00 MVA PHT: 4.07 Decel [place]: 2.62 Aortic Valve AoV Pk Kody: 1.35 AoV Mn Kody: 0.91 AoV VTI: 0.27 AoV Pk Grad: 7.00 Aov Mn Grad: 4.00 BENSON Cont.VTI: 2.83 LVOT LVOT Pk Kody: 1.14 LVOT Mn Kody: 0.79 LVOT VTI: 0.22 LVOT Pk Grad: 5.00 LVOT Mn Grad: 3.00 LVOT Diam: 2.10 LVOT Area: 3.46 Diastolic Function MV Pk E: 0.48 MV Pk A: 0.55 E/A: 0.90 E'Medial: 5.98 E/E' Med: 8.00 E' Laterial: 9.68 E/E' Lat: 5.00 Tricuspid Valve TR Pk Kody: 1.66 TR Pk Grad: 11.00 RA Press: 3.00 RVSP: 14.00 Great Vessels Aorta Ao Asc: 3.90 2.1-3.4 cm Ao Arch: 2.80 Updated in Other Vendor System with Status of Final Tim Bhandari MD electronically signed on 02/06/2025 4:11:01 PM with status of Final
--- OUTSIDE RECORDS SUMMARY | 2025-02-06 15:52 | XMS_ITS | Encounter Summary ---
Author Organization [facility] Address [address] [place] [address] Care Team Providers Care Stone Fabricator Name Role Phone Physician, No Pcp Primary Care Provider Unavaila ble Encounter Details Date Type Department Care Team (Late st Contact Info) Description 01/14/2025 Lab Requisition [facility] - Main Lab [address] [facility] [place] [phone] Tashia Crocker MD [address] [facility] [address] [place] [phone] Unspecified external cause status Social History Tobacco Use Types Packs/Day Years Used Date Smoking Tobacco: Never Assessed Comments Unknown Sex and Gender Information Value Date Recorded Sex Assigned at Not on file Legal Sex Female 6:15 PM EST Gender Identity Not on file Sexual Orientation Not on file documented as of this encounter Plan of Treatment Not on file documented as of this encounter Procedures Procedure Name Priority Date/Time Associated Diagnosis Comments URINALYSIS WITH REFLEX MICROSCOPIC Routine 01/14/2025 12:00 AM EDT Unspecified external cause status URINALYSIS WITH REFLEX MICROSCOPIC Routine 01/14/2025 12:00 AM EDT Unspecified external cause status CULTURE URINE Routine 01/14/2025 12:00 AM EDT Unspecified external cause status documented in this encounter Results * Urinalysis with reflex microscopic (01/14/2025 12:00 AM EDT) [facility] Specific [place] Urine LAB URINALYSIS - AUTOMATED METHOD 01/16/2025 11:59 AM EDT [facility] Comment: ATTENTION - WRONG PATIENT: ??Please do not use for clinical decision making as these results do not belong to this patient. Due to regulatory guidelines, incorrect results are to remain on the patient's chart. Corrected result: Previously reported as 1.001 on 01/14/2025 at 1923 EDT. pH, Urine LAB URINALYSIS - AUTOMATED METHOD 01/16/2025 11:59 AM EDT [facility] Comment: ATTENTION - WRONG PATIENT: ??Please do not use for clinical decision making as these results do not belong to this patient. Due to regulatory guidelines, incorrect results are to remain on the patient's chart. Corrected result: Previously reported as 7.5 pH on 01/14/2025 at 1923 EDT. Leukocytes, Urine LAB URINALYSIS - AUTOMATED METHOD 01/16/2025 11:59 AM EDT [facility] Comment: ATTENTION - WRONG PATIENT: ??Please do not use for clinical decision making as these results do not belong to this patient. Due to regulatory guidelines, incorrect results are to remain on the patient's chart. Corrected result: Previously reported as Trace on 01/14/2025 at 1923 EDT. Nitrite, Urine LAB URINALYSIS - AUTOMATED METHOD 01/16/2025 11:59 AM EDT [facility] Comment: ATTENTION - WRONG PATIENT: ??Please do not use for clinical decision making as these results do not belong to this patient. Due to regulatory guidelines, incorrect results are to remain on the patient's chart. Corrected result: Previously reported as Negative on 01/14/2025 at 1923 EDT. Protein, Urine LAB URINALYSIS - AUTOMATED METHOD 01/16/2025 11:59 AM EDT [facility] Comment: ATTENTION - WRONG PATIENT: ??Please do not use for clinical decision making as these results do not belong to this patient. Due to regulatory guidelines, incorrect results are to remain on the patient's chart. Corrected result: Previously reported as Negative mg/dL on 01/14/2025 at 1923 EDT. Glucose, Urine LAB URINALYSIS - AUTOMATED METHOD 01/16/2025 11:59 AM EDT [facility] Comment: ATTENTION - WRONG PATIENT: ??Please do not use for clinical decision making as these results do not belong to this patient. Due to regulatory guidelines, incorrect results are to remain on the patient's chart. Corrected result: Previously reported as Negative mg/dL on 01/14/2025 at 1923 EDT. Ketones, Urine LAB URINALYSIS - AUTOMATED METHOD 01/16/2025 11:59 AM EDT [facility] Comment: ATTENTION - WRONG PATIENT: ??Please do not use for clinical decision making as these results do not belong to this patient. Due to regulatory guidelines, incorrect results are to remain on the patient's chart. Corrected result: Previously reported as Negative mg/dL on 01/14/2025 at 1923 EDT. Urobilinogen, Urine LAB URINALYSIS - AUTOMATED METHOD 01/16/2025 11:59 AM EDT [facility] Comment: ATTENTION - WRONG PATIENT: ??Please do not use for clinical decision making as these results do not belong to this patient. Due to regulatory guidelines, incorrect results are to remain on the patient's chart. Corrected result: Previously reported as 0.2 mg/dL on 01/14/2025 at 1923 EDT. Bilirubin, Urine LAB URINALYSIS - AUTOMATED METHOD 01/16/2025 11:59 AM EDT [facility] Comment: ATTENTION - WRONG PATIENT: ??Please do not use for clinical decision making as these results do not belong to this patient. Due to regulatory guidelines, incorrect results are to remain on the patient's chart. Corrected result: Previously reported as Negative on 01/14/2025 at 1923 EDT. Blood, Urine LAB URINALYSIS - AUTOMATED METHOD 01/16/2025 11:59 AM EDT [facility] Comment: ATTENTION - WRONG PATIENT: ??Please do not use for clinical decision making as these results do not belong to this patient. Due to regulatory guidelines, incorrect results are to remain on the patient's chart. Corrected result: Previously reported as Negative on 01/14/2025 at 1923 EDT. RBC, Urine LAB URINALYSIS - AUTOMATED METHOD 01/16/2025 11:59 AM EDT [facility] Comment: ATTENTION - WRONG PATIENT: ??Please do not use for clinical decision making as these results do not belong to this patient. Due to regulatory guidelines, incorrect results are to remain on the patient's chart. Corrected result: Previously reported as 0.3 /HPF on 01/14/2025 at 1923 EDT. WBC, Urine LAB URINALYSIS - AUTOMATED METHOD 01/16/2025 11:59 AM EDT [facility] Comment: ATTENTION - WRONG PATIENT: ??Please do not use for clinical decision making as these results do not belong to this patient. Due to regulatory guidelines, incorrect results are to remain on the patient's chart. Corrected result: Previously reported as 0.3 /HPF on 01/14/2025 at 1923 EDT. Squamous Epithelial, Urine LAB URINALYSIS - AUTOMATED METHOD 01/16/2025 11:59 AM EDT [facility] Comment: ATTENTION - WRONG PATIENT: ??Please do not use for clinical decision making as these results do not belong to this patient. Due to regulatory guidelines, incorrect results are to remain on the patient's chart. Corrected result: Previously reported as 27 /LPF on 01/14/2025 at 1923 EDT. Bacteria, Urine LAB URINALYSIS - AUTOMATED METHOD 01/16/2025 11:59 AM EDT [facility] Comment: ATTENTION - WRONG PATIENT: ??Please do not use for clinical decision making as these results do not belong to this patient. Due to regulatory guidelines, incorrect results are to remain on the patient's chart. Corrected result: Previously reported as Few /HPF on 01/14/2025 at 1923 EDT. Hyaline Casts, Urine LAB URINALYSIS - AUTOMATED METHOD 01/16/2025 11:59 AM EDT [facility] Comment: ATTENTION - WRONG PATIENT: ??Please do not use for clinical decision making as these results do not belong to this patient. Due to regulatory guidelines, incorrect results are to remain on the patient's chart. Corrected result: Previously reported as 0.0 /LPF on 01/14/2025 at 1923 EDT. Urine Urine specimen obtained by clean catch procedure / Unknown 01/14/2025 01/14/2025 5:51 PM EDT us Tashia Crocker MD LAB URINE ORDERABLES Rene loretta Result - Final Performing Organization Address [facility]/ZIP Co de Phone Number [facility] [address] [place] [address], [place] [phone] * Culture urine (01/14/2025 12:00 AM EDT) Culture, Urine See comment 01/16/2025 1:24 PM EDT [facility] Urine Urine specimen obtained by clean catch procedure / Unknown 01/14/2025 01/14/2025 5:51 PM EDT Narrative [facility] - 01/16/2025 1:24 PM EDT Please disregard previously reported result. ??Specimen mislabeled. ?? us Tashia Crocker MD LAB MICROBIOLOGY - GENER AL ORDERABLES Final Result Performing Organization Address City/[facility]/ZIP Co de Phone Number [facility] [address] [place] [address], [place] [phone] documented in this encounter Visit Diagnoses Diagnosis Unspecified external cause status documented in this encounter Care Teams Stone Fabricator Relationship Specialty Start Date End Date Physician, No Pcp PCP - General 01/07/25 documented as of this encounter
--- OUTSIDE RECORDS SUMMARY | 2025-02-06 15:52 | XMS_ITS | Clinical Summary ---
Author Organization [facility] Address [address] [place] [address] Phone Care Team Providers Care Metal Trim Erector Name Role Phone Physician, No Pcp Primary Care Provider Unavaila ble Encounters Date Type Department Care Team Description 01/15/2025 Lab Requisition [facility] Lab [address] [place] [phone] Sam Crocker MD Encounter for gynecological examination (general) (routine) without abnormal findings 01/14/2025 Lab Requisition [facility] Lab [address] [place] [phone] Sam Crocker MD Unspecified external cause status from Last 3 Months Social History Tobacco Use Types Packs/Day Years Used Date Smoking Tobacco: Never Assessed Comments Unknown Sex and Gender Information Value Date Recorded Sex Assigned at Not on file Legal Sex Female 6:15 PM EST Gender Identity Not on file Sexual Orientation Not on file Plan of Treatment Health Maintenance Due Date Last Done Comments DTaP,Tdap,and Td Vaccines (1 - Tdap) 1994 Cholesterol Screening (Lipid Panel) 10/06/2022 Colorectal Cancer Screening: Colonoscopy 10/06/2022 Depression Screening 10/06/2022 HIV Screening 10/06/2022 Hepatitis C Screening 10/06/2022 Social Influencers of Health Screening 10/06/2022 COVID-19 Vaccine ( season) 2024 Influenza Vaccine (Season Ended) 2025 Breast Cancer Screening 01/05/2026 01/06/20 24, 12/29/2022, 12/20/2021, Additional history exists Cervical Cancer Screening: Pap Smear 01/15/2028 01/14/2025 Hepatitis B Vaccines Completed 03/13/2020, 01/09/2020, 11/05/2019 [...] age to complete this topic Meningococcal B Vaccine Aged Out No l onger eligible based on patient's age to complete this topic Pneumococcal Vaccine: Pediatrics (0 to 5 Years) and At-Risk Patients (6 to 64 Years) Aged Out No longer eligible based on patient's age to complete this topic RSV Immunization Patients Under 20 months Aged Out No longer eligible based on patient's age to complete this topic Varicella Vaccines Aged Out No longer eligible based on patient's age to complete this topic Procedures Procedure Name Priority Date/Time Associated Diagnosis Comments PAP SMEAR Routine 01/14/2025 12:00 AM EDT Encounter for gynecological examination (general) (routine) without abnormal findings URINALYSIS WITH REFLEX MICROSCOPIC Routine 01/14/2025 12:00 AM EDT Unspecified external cause status URINALYSIS WITH REFLEX MICROSCOPIC Routine 01/14/2025 12:00 AM EDT Unspecified external cause status CULTURE URINE Routine 01/14/2025 12:00 AM EDT Unspecified external cause status GAUTAM SCREENING DIGITAL Routine 01/06/2024 3:33 PM EDT Encounter for screening mammogram for malignant neoplasm of breast from Last 3 Months or Most Recently Relevant to Health Maintenance Results * Urinalysis with reflex microscopic (01/14/2025 12:00 AM EDT) Specific [place] [facility] LAB URINALYSIS - AUTOMATED METHOD 01/16/2025 [...] / Unknown 01/14/2025 01/14/2025 5:51 PM EDT Sam Crocker MD LAB URINE ORDERABLES Rene loretta Result - Final Performing Organization Address [facility]/ZIP Co de Phone Number [facility] [address] [place] [address], [place] [phone] * Culture urine (01/14/2025 12:00 AM EDT) Culture, Urine See comment 01/16/2025 1:24 PM EDT [facility] Urine Urine specimen obtained by clean catch procedure / Unknown 01/14/2025 01/14/2025 5:51 PM EDT Narrative [facility] - 01/16/2025 1:24 PM EDT Please disregard previously reported result. ??Specimen mislabeled. ?? Sam Crocker MD LAB MICROBIOLOGY - GENER AL ORDERABLES Final Result Performing Organization Address [facility]/ZIP Co de Phone Number [facility] [address] [place] [address], [place] [phone] * Pap smear (01/14/2025 12:00 AM EDT) Interpretation Negative for intraepithelial lesion or malignancy 01/16/2025 11:58 AM EDT [facility] General Categorization Negative 01/16/2025 11:58 AM EDT [facility] Specimen Adequacy Satisfactory for evaluation, endocervical/martinez sformation zone component present 01/16/2025 11:58 AM EDT [facility] Pap Methodology Liquid Based Pap Test 01/16/2025 11:58 AM EDT [facility] Disclaimer The Pap test is a screening test which carries an inherent false negative rate. These test results should be correlated with the patient's clinical findings and history. This Pap test was processed using an automated screening system. Technical cytopathology services provided by [facility], at [address] [place] [address] (CLIA # [id number]/Marcie Holcomb MD, Communication Signals Intelligence.) 01/16/2025 11:58 AM EDT [facility] Console Pap Interpretation Reported 01/16/2025 11:58 AM EDT [facility] Brushing/Spatula Cervix uteri structure / Unknown 01/14/2025 01/15/2025 7:29 AM EDT us Sam Crocker MD LAB CYTOLOGY ORDERABLES Final Result Performing Organization Address City/State/[facility] Co de Phone Number [facility]) [facility] [address] [place] [address], * GAUTAM SCREENING DIGITAL (01/06/2024 3:33 PM EDT) Anatomical Region Laterality Modality Mammography 01/06/2024 3:10 PM EDT Narrative 01/06/2024 3:33 PM EDT [facility] Diagnostic Imaging Department [address] [place] [address] Patient: ??NU KINGSLEY ?/Age/Sex: 1975 - 48 - F Unit#: ??[id number] ? Location/Status: ??SPDIMAM/REG CLI ? Mnemonic/Ordering Site: ??DIGSC/SPMAM Ordering Physician: ??SAM LARKIN MD [facility] Screening Digital - 01/06/24 - 1521 Report Status:Signed EXAM: [facility] Screening Digital EXAM DATE AND TIME: 01/06/2024 3:22 PM HISTORY: ??Annual screening COMPARISON: ??Multiple exams dating back to 2016 TECHNIQUE: Bilateral digital breast tomosynthesis was performed in the CC and MLO projections. Computer aided detection with Stagee 3D 3.1 was employed. TISSUE DENSITY: b. [...] Note Melissa Tillman MD - 06/11/2024 [facility] Diagnostic Imaging Department [address] [place], [place] [id number] Patient: NU KINGSLEY/Age/Sex: 1975 - 48 - F Unit#: [id number] Location/Status: SPDIMAM/REG CLI Mnemonic/Ordering Site: [facility] Ordering Physician: SAM LARKIN MD [facility] Screening Digital - 01/06/24 - 1521 Report Status:Signed EXAM: [facility] Screening Digital EXAM DATE AND TIME: 01/06/2024 3:22 PM HISTORY: Annual screening COMPARISON: Multiple exams dating back to 2016 TECHNIQUE: Bilateral digital breast tomosynthesis was performed in the CCand MLO projections. Computer aided detection with Stagee 3D 3.1was employed. TISSUE DENSITY: b. There [...] Dic Date/Time: 01/06/24 1531 Sign date/Time: 01/06/24 1533 Sam Crocker MD IMG BI PROCEDURES Final Result from Last 3 Months or Most Recently Relevant to Health Maintenance Insurance [facility] [facility] Care Teams Metal Trim Erector Relationship Specialty Start Date End Date Physician, No Pcp PCP - General 01/07/25
--- OUTSIDE RECORDS SUMMARY | 2025-02-06 15:52 | XMS_ITS | Encounter Summary ---
Author Organization [employer] Address [address] [place] [address] Care Team Providers Care Car Hop Name Role Phone Physician, No Pcp Primary Care Provider Unavaila ble Encounter Details Date Type Department Care Team (Latest Contact Info) Description 01/15/2025 Lab Requisition [facility] Main Lab [address] [place] [phone] Tashia Crocker MD [address] [phone] Encounter for gynecological examination (general) (routine) without abnormal findings Social History Tobacco Use Types Packs/Day Years [...] gynecological examination (general) (routine) without abnormal findings documented in this encounter Results * Pap smear (01/14/2025 12:00 AM EDT) Interpretation Negative for intraepithelial lesion or malignancy 01/16/2025 11:58 AM EDT [facility] [place] [facility] General Categorization Negative 01/16/2025 11:58 AM EDT [facility] Specimen Adequacy Satisfactory for evaluation, endocervical/martinez sformation zone component present 01/16/2025 11:58 AM EDT [facility] Pap Methodology Liquid Based Pap Test 01/16/2025 11:58 AM EDT [facility] Disclaimer The Pap test is a screening test which carries an inherent false negative rate. These test results should be correlated with the patient's clinical findings and history. This Pap test was processed using an automated screening system. Technical cytopathology services provided by [facility], at [address] [place] [address] (CLIA # [id number]/Marcie Holcomb MD, Apparel Designer.) 01/16/2025 11:58 AM T [facility] Console Pap Interpretation Reported 01/16/2025 11:58 AM [facility] Brushing/Spatula Cervix uteri structure / Unknown 01/14/2025 01/15/2025 7:29 AM EDT us Tashia Crocker MD LAB CYTOLOGY ORDERABLES Final Result [facility] [address] [place] [address], documented in this encounter Visit Diagnoses Diagnosis Encounter for gynecological examination (general) (routine) without abnormal findings documented in this encounter Care Teams Car Hop Relationship Specialty Start Date End Date Physician, No Pcp PCP - General 01/07/25 documented as of this encounter
== END ==
LOC: HO.CARD 13:21
PROVIDERS: Visit Provider Internal Medicine Cardiovascular Disease
DX: I77.89 Other specified disorders of arteries and arterioles (principal)
CPT/HCPCS: 93306; Q9957

== ENCOUNTER → 2025-02-06 13:46 | Outpatient (BNV) | payer OTHER, SELFPAY | PROVIDERS: Visit Provider Internal Medicine Cardiovascular Disease | DX: I34.0 Nonrheumatic mitral (valve) insufficiency (principal); I37.1 Nonrheumatic pulmonary valve insufficiency; I36.1 Nonrheumatic tricuspid (valve) insufficiency | CPT/HCPCS: 93306 ==

== ENCOUNTER 2025-02-14 08:31 | Outpatient (REF) | payer OTHER, SELFPAY ==
--- OUTSIDE RECORDS SUMMARY | 2025-02-14 08:55 | XMS_ITS | Encounter Summary ---
Author Organization [employer] Address [address] [place] [address] Care Team Providers Care Sling Operator Name Role Phone Physician, No Pcp Primary Care Provider Unavaila ble Encounter Details Date Type Department Care Team (Latest Contact Info) Description 01/15/2025 Lab Requisition [facility] Main Lab [address] [place] [phone] Tashia Crocker MD [address] [phone] Encounter for gynecological examination (general) (routine) without [...] lesion or malignancy 01/16/2025 11:58 AM EDT [facility] [place] [facility] LAB General Categorization Negative 01/16/2025 11:[address] [facility] Specimen Adequacy Satisfactory for evaluation, endocervical/martinez sformation zone component present 01/16/2025 11:[address] [facility] Pap Methodology Liquid Based Pap Test 01/16/2025 11:[address] [facility] Disclaimer The Pap test is a screening test which carries an inherent false negative rate. These test results should be correlated with the patient's clinical findings and history. This Pap test was processed using an automated screening system. Technical cytopathology services provided by [facility], at [address] [place] [address] (CLIA # [id number]/Marcie Holcomb MD, Nursery Laborer.) 01/16/2025 11:[address] [facility] Console Pap Interpretation Reported 01/16/2025 11:58 AM [facility] LAB Brushing/Spatula Cervix uteri structure / Unknown 01/14/2025 01/15/2025 7:29 AM EDT us Tashia Crocker MD LAB CYTOLOGY ORDERABLES Final Result [facility] [address] [place] [address], documented in this encounter Visit Diagnoses Diagnosis Encounter for gynecological examination (general) (routine) without abnormal findings documented in this encounter Care Teams Sling Operator Relationship Specialty Start Date End Date Physician, No Pcp PCP - General 01/07/25 documented as of this encounter
--- OUTSIDE RECORDS SUMMARY | 2025-02-14 08:55 | XMS_ITS | Clinical Summary ---
Author Organization [facility] Address [address] [place] [address] Phone Care Team Providers Care Operations Mgr Name Role Phone Physician, No Pcp Primary Care Provider Unavaila ble Encounters Date Type Department Care Team Description 01/15/2025 Lab Requisition [facility] Lab [address] [place] [phone] Sam Crocker MD Encounter for gynecological examination (general) (routine) without abnormal findings 01/14/2025 Lab Requisition [facility] Lab [address] [place] [phone] Sam Crocker MD Unspecified external cause status [...] reflex microscopic (01/14/2025 12:00 AM EDT) Specific [place] Urine LAB URINALYSIS - AUTOMATED METHOD 01/16/2025 11:59 AM EDT [facility] Comment: ATTENTION - WRONG PATIENT: ??Please do not use for clinical decision making as these results do not belong to this patient. Due to regulatory guidelines, incorrect results are to remain on the patient's chart. Corrected result: Previously reported as 1.001 on 01/14/2025 at 1923 EDT. pH, Urine LAB URINALYSIS - AUTOMATED METHOD 01/16/2025 11:59 AM EDT [facility] Comment: ATTENTION - WRONG PATIENT: ??Please do not use for clinical decision making as these results do not belong to this patient. Due to regulatory guidelines, incorrect results are to remain on the patient's chart. Corrected result: Previously reported as 7.5 pH on 01/14/2025 at 1923 EDT. Leukocytes, Urine LAB URINALYSIS - AUTOMATED METHOD 01/16/2025 11:59 AM EDT [facility] Comment: ATTENTION - WRONG PATIENT: ??Please do not use for clinical decision making as these results do not belong to this patient. Due to regulatory guidelines, incorrect results are to remain on the patient's chart. Corrected result: Previously reported as Trace on 01/14/2025 at 1923 EDT. Nitrite, Urine LAB URINALYSIS - AUTOMATED METHOD 01/16/2025 11:59 AM EDT [facility] Comment: ATTENTION - WRONG PATIENT: ??Please do not use for clinical decision making as these results do not belong to this patient. Due to regulatory guidelines, incorrect results are to remain on the patient's chart. Corrected result: Previously reported as Negative on 01/14/2025 at 1923 EDT. Protein, Urine LAB URINALYSIS - AUTOMATED METHOD 01/16/2025 11:59 AM EDT [facility] Comment: ATTENTION - WRONG PATIENT: ??Please do not use for clinical decision making as these results do not belong to this patient. Due to regulatory guidelines, incorrect results are to remain on the patient's chart. Corrected result: Previously reported as Negative mg/dL on 01/14/2025 at 1923 EDT. Glucose, Urine LAB URINALYSIS - AUTOMATED METHOD 01/16/2025 11:59 AM EDT [facility] Comment: ATTENTION - WRONG PATIENT: ??Please do not use for clinical decision making as these results do not belong to this patient. Due to regulatory guidelines, incorrect results are to remain on the patient's chart. Corrected result: Previously reported as Negative mg/dL on 01/14/2025 at 1923 EDT. Ketones, Urine LAB URINALYSIS - AUTOMATED METHOD 01/16/2025 11:59 AM EDT [facility] Comment: ATTENTION - WRONG PATIENT: ??Please do not use for clinical decision making as these results do not belong to this patient. Due to regulatory guidelines, incorrect results are to remain on the patient's chart. Corrected result: Previously reported as Negative mg/dL on 01/14/2025 at 1923 EDT. Urobilinogen, Urine LAB URINALYSIS - AUTOMATED METHOD 01/16/2025 11:59 AM EDT [facility] Comment: ATTENTION - WRONG PATIENT: ??Please do not use for clinical decision making as these results do not belong to this patient. Due to regulatory guidelines, incorrect results are to remain on the patient's chart. Corrected result: Previously reported as 0.2 mg/dL on 01/14/2025 at 1923 EDT. Bilirubin, Urine LAB URINALYSIS - AUTOMATED METHOD 01/16/2025 11:59 AM EDT [facility] Comment: ATTENTION - WRONG PATIENT: ??Please do not use for clinical decision making as these results do not belong to this patient. Due to regulatory guidelines, incorrect results are to remain on the patient's chart. Corrected result: Previously reported as Negative on 01/14/2025 at 1923 EDT. Blood, Urine LAB URINALYSIS - AUTOMATED METHOD 01/16/2025 11:59 AM EDT [facility] Comment: ATTENTION - WRONG PATIENT: ??Please do not use for clinical decision making as these results do not belong to this patient. Due to regulatory guidelines, incorrect results are to remain on the patient's chart. Corrected result: Previously reported as Negative on 01/14/2025 at 1923 EDT. RBC, Urine LAB URINALYSIS - AUTOMATED METHOD 01/16/2025 11:59 AM EDT [facility] Comment: ATTENTION - WRONG PATIENT: ??Please do not use for clinical decision making as these results do not belong to this patient. Due to regulatory guidelines, incorrect results are to remain on the patient's chart. Corrected result: Previously reported as 0.3 /HPF on 01/14/2025 at 1923 EDT. WBC, Urine LAB URINALYSIS - AUTOMATED METHOD 01/16/2025 11:59 AM EDT [facility] Comment: ATTENTION - WRONG PATIENT: ??Please do not use for clinical decision making as these results do not belong to this patient. Due to regulatory guidelines, incorrect results are to remain on the patient's chart. Corrected result: Previously reported as 0.3 /HPF on 01/14/2025 at 1923 EDT. Squamous Epithelial, Urine LAB URINALYSIS - AUTOMATED METHOD 01/16/2025 11:59 AM EDT [facility] Comment: ATTENTION - WRONG PATIENT: ??Please do not use for clinical decision making as these results do not belong to this patient. Due to regulatory guidelines, incorrect results are to remain on the patient's chart. Corrected result: Previously reported as 27 /LPF on 01/14/2025 at 1923 EDT. Bacteria, Urine LAB URINALYSIS - AUTOMATED METHOD 01/16/2025 11:59 AM EDT [facility] Comment: ATTENTION - WRONG PATIENT: ??Please do not use for clinical decision making as these results do not belong to this patient. Due to regulatory guidelines, incorrect results are to remain on the patient's chart. Corrected result: Previously reported as Few /HPF on 01/14/2025 at 1923 EDT. Hyaline Casts, Urine LAB URINALYSIS - AUTOMATED METHOD 01/16/2025 11:59 AM EDT [facility] Comment: ATTENTION - WRONG [...] loretta Result - Final Performing Organization Address [facility]/ZIP Co de Phone Number [facility] [address] [place] [address], [place] [phone] * Culture urine (01/14/2025 12:00 AM EDT) Culture, Urine See comment 01/16/2025 1:24 PM EDT [facility] Urine Urine specimen obtained by clean catch procedure / Unknown 01/14/2025 01/14/2025 5:51 PM EDT Narrative [facility] - 01/16/2025 1:24 PM EDT Please disregard previously reported result. ??Specimen mislabeled. ?? Sam Crocker MD LAB MICROBIOLOGY - GENER AL ORDERABLES Final Result Performing Organization Address [facility]/ZIP Co de Phone Number [facility] [address] [place] [address], [place] [phone] * Pap smear (01/14/2025 12:00 AM EDT) Interpretation Negative for intraepithelial lesion or malignancy 01/16/2025 11:58 AM EDT [facility] General Categorization Negative 01/16/2025 [...] screening system. Technical cytopathology services provided by [facility], at [address] [place] [address] (CLIA # [id number]/Marcie Holcomb MD, Dewaxer.) 01/16/2025 11:58 AM EDT [facility] Console Pap Interpretation Reported 01/16/2025 11:58 AM EDT [facility] Brushing/Spatula Cervix uteri structure / Unknown 01/14/2025 01/15/2025 7:29 AM EDT us Sam Crocker MD LAB CYTOLOGY ORDERABLES Final Result Performing Organization Address City/State/[facility] Co de Phone Number [facility] [address] [place] [address], * GAUTAM SCREENING DIGITAL (01/06/2024 3:33 PM EDT) Anatomical Region Laterality Modality Mammography 01/06/2024 3:10 PM EDT Narrative 01/06/2024 3:33 PM EDT [facility] Diagnostic Imaging Department [address] [place] [address] Patient: ??NU KINGSLEY ?/Age/Sex: 1975 - 48 - F Unit#: ??[id number] ? Location/Status: ??SPDIMAM/REG CLI ? Mnemonic/Ordering Site: ??DIGSC/SPMAM Ordering Physician: ??SAM LARKIN MD [facility] Screening Digital - 01/06/24 - 1521 Report Status:Signed EXAM: [facility] Screening Digital EXAM DATE AND TIME: 01/06/2024 3:22 PM HISTORY: ??Annual screening COMPARISON: ??Multiple exams dating back to 2016 TECHNIQUE: Bilateral digital breast tomosynthesis was performed in the CC and MLO projections. Computer aided detection with Book[employer]ee 3D 3.1 was employed. TISSUE DENSITY: b. [...] Sign date/Time: ??01/06/24 1533 Procedure Note Melissa Tilmlan MD - 06/11/2024 [facility] Diagnostic Imaging Department [address] [place], [place] [id number] Patient: NU KINGSLEY/Age/Sex: 1975 - 48 - F Unit#: [id number] Location/Status: SPDIMAM/REG CLI Mnemonic/Ordering Site: [facility] Ordering Physician: SAM LARKIN MD [facility] Screening Digital - 01/06/24 - 1521 Report Status:Signed EXAM: [facility] Screening Digital EXAM DATE AND TIME: 01/06/2024 3:22 PM HISTORY: Annual screening COMPARISON: Multiple exams dating back to 2016 TECHNIQUE: Bilateral digital breast tomosynthesis was performed in the CCand MLO projections. Computer aided detection with Bookigee 3D 3.1was employed. TISSUE DENSITY: b. There [...] Most Recently Relevant to Health Maintenance Insurance [facility] [facility] Care Teams Operations Mgr Relationship Specialty Start Date End Date Physician, No Pcp PCP - General 01/07/25
--- OUTSIDE RECORDS SUMMARY | 2025-02-14 08:55 | XMS_ITS | Encounter Summary ---
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 Physician, No Pcp Primary Care Provider Unavaila ble Encounter Details Date Type Department Care Team (Late st Contact Info) Description 01/14/2025 Lab Requisition [facility] - Main Lab 299 [facility] [place] [phone] Tashia Crocker MD 299 [facility] [address] [place] [phone] Unspecified external cause status Social History Tobacco [...] with reflex microscopic (01/14/2025 12:00 AM EDT) [facility] Specific [place] Urine LAB URINALYSIS - AUTOMATED METHOD 01/16/2025 11:59 AM EDT [facility] Comment: ATTENTION - WRONG PATIENT: ??Please do not use for clinical decision making as these results do not belong to this patient. Due to regulatory guidelines, incorrect results are to remain on the patient's chart. Corrected result: Previously reported as 1.001 on 01/14/2025 at 1923 EDT. pH, Urine LAB URINALYSIS - AUTOMATED METHOD 01/16/2025 11:59 AM EDT [facility] Comment: ATTENTION - WRONG PATIENT: ??Please do not use for clinical decision making as these results do not belong to this patient. Due to regulatory guidelines, incorrect results are to remain on the patient's chart. Corrected result: Previously reported as 7.5 pH on 01/14/2025 at 1923 EDT. Leukocytes, Urine LAB URINALYSIS - AUTOMATED METHOD 01/16/2025 11:59 AM EDT [facility] Comment: ATTENTION - WRONG PATIENT: ??Please do not use for clinical decision making as these results do not belong to this patient. Due to regulatory guidelines, incorrect results are to remain on the patient's chart. Corrected result: Previously reported as Trace on 01/14/2025 at 1923 EDT. Nitrite, Urine LAB URINALYSIS - AUTOMATED METHOD 01/16/2025 11:59 AM EDT [facility] Comment: ATTENTION - WRONG PATIENT: ??Please do not use for clinical decision making as these results do not belong to this patient. Due to regulatory guidelines, incorrect results are to remain on the patient's chart. Corrected result: Previously reported as Negative on 01/14/2025 at 1923 EDT. Protein, Urine LAB URINALYSIS - AUTOMATED METHOD 01/16/2025 11:59 AM EDT [facility] Comment: ATTENTION - WRONG PATIENT: ??Please do not use for clinical decision making as these results do not belong to this patient. Due to regulatory guidelines, incorrect results are to remain on the patient's chart. Corrected result: Previously reported as Negative mg/dL on 01/14/2025 at 1923 EDT. Glucose, Urine LAB URINALYSIS - AUTOMATED METHOD 01/16/2025 11:59 AM EDT [facility] Comment: ATTENTION - WRONG PATIENT: ??Please do not use for clinical decision making as these results do not belong to this patient. Due to regulatory guidelines, incorrect results are to remain on the patient's chart. Corrected result: Previously reported as Negative mg/dL on 01/14/2025 at 1923 EDT. Ketones, Urine LAB URINALYSIS - AUTOMATED METHOD 01/16/2025 11:59 AM EDT [facility] Comment: ATTENTION - WRONG PATIENT: ??Please do not use for clinical decision making as these results do not belong to this patient. Due to regulatory guidelines, incorrect results are to remain on the patient's chart. Corrected result: Previously reported as Negative mg/dL on 01/14/2025 at 1923 EDT. Urobilinogen, Urine LAB URINALYSIS - AUTOMATED METHOD 01/16/2025 11:59 AM EDT [facility] Comment: ATTENTION - WRONG PATIENT: ??Please do not use for clinical decision making as these results do not belong to this patient. Due to regulatory guidelines, incorrect results are to remain on the patient's chart. Corrected result: Previously reported as 0.2 mg/dL on 01/14/2025 at 1923 EDT. Bilirubin, Urine LAB URINALYSIS - AUTOMATED METHOD 01/16/2025 11:59 AM EDT [facility] Comment: ATTENTION - WRONG PATIENT: ??Please do not use for clinical decision making as these results do not belong to this patient. Due to regulatory guidelines, incorrect results are to remain on the patient's chart. Corrected result: Previously reported as Negative on 01/14/2025 at 1923 EDT. Blood, Urine LAB URINALYSIS - AUTOMATED METHOD 01/16/2025 11:59 AM EDT [facility] Comment: ATTENTION - WRONG PATIENT: ??Please do not use for clinical decision making as these results do not belong to this patient. Due to regulatory guidelines, incorrect results are to remain on the patient's chart. Corrected result: Previously reported as Negative on 01/14/2025 at 1923 EDT. RBC, Urine LAB URINALYSIS - AUTOMATED METHOD 01/16/2025 11:59 AM EDT [facility] Comment: ATTENTION - WRONG PATIENT: ??Please do not use for clinical decision making as these results do not belong to this patient. Due to regulatory guidelines, incorrect results are to remain on the patient's chart. Corrected result: Previously reported as 0.3 /HPF on 01/14/2025 at 1923 EDT. WBC, Urine LAB URINALYSIS - AUTOMATED METHOD 01/16/2025 11:59 AM EDT [facility] Comment: ATTENTION - WRONG PATIENT: ??Please do not use for clinical decision making as these results do not belong to this patient. Due to regulatory guidelines, incorrect results are to remain on the patient's chart. Corrected result: Previously reported as 0.3 /HPF on 01/14/2025 at 1923 EDT. Squamous Epithelial, Urine LAB URINALYSIS - AUTOMATED METHOD 01/16/2025 11:59 AM EDT [facility] Comment: ATTENTION - WRONG PATIENT: ??Please do not use for clinical decision making as these results do not belong to this patient. Due to regulatory guidelines, incorrect results are to remain on the patient's chart. Corrected result: Previously reported as 27 /LPF on 01/14/2025 at 1923 EDT. Bacteria, Urine LAB URINALYSIS - AUTOMATED METHOD 01/16/2025 11:59 AM EDT [facility] Comment: ATTENTION - WRONG PATIENT: ??Please do not use for clinical decision making as these results do not belong to this patient. Due to regulatory guidelines, incorrect results are to remain on the patient's chart. Corrected result: Previously reported as Few /HPF on 01/14/2025 at 1923 EDT. Hyaline Casts, Urine LAB URINALYSIS - AUTOMATED METHOD 01/16/2025 11:59 AM EDT [facility] Comment: ATTENTION - WRONG PATIENT: ??Please [...] loretta Result - Final Performing Organization Address [facility]/ZIP Co de Phone Number [facility] [address] [place] [address], [place] [phone] * Culture urine (01/14/2025 12:00 AM EDT) Culture, Urine See comment 01/16/2025 1:24 PM EDT [facility] Urine Urine specimen obtained by clean catch procedure / Unknown 01/14/2025 01/14/2025 5:51 PM EDT Narrative [facility] - 01/16/2025 1:24 PM EDT Please disregard previously reported result. ??Specimen mislabeled. ?? us Tashia Crocker MD LAB MICROBIOLOGY - GENER AL ORDERABLES Final Result Performing Organization Address City/[facility]/ZIP Co de Phone Number [facility] [address] [place] [address], [place] [phone] documented in this encounter Visit Diagnoses Diagnosis Unspecified external cause status documented in this encounter Care Teams Fish Farm Laborer Relationship Specialty Start Date End Date Physician, No Pcp PCP - General 01/07/25 documented as of this encounter
== END 2025-02-14 08:32 | disposition home or self-care (01) ==
LOC: HO.MAMMO 08:31
PROVIDERS: Visit Provider Obstetrics & Gynecology
DX: Z12.31 Encounter for screening mammogram for malignant neoplasm of breast (principal)
CPT/HCPCS: 77063; 77067

== ENCOUNTER → 2025-02-14 09:30 | Outpatient (BNV) | payer OTHER, SELFPAY | PROVIDERS: Visit Provider Internal Medicine | DX: Z12.31 Encounter for screening mammogram for malignant neoplasm of breast (principal) | CPT/HCPCS: 77063; 77067 ==

== ENCOUNTER 2025-02-26 15:03 | Outpatient (AMB) | payer OTHER, SELFPAY ==
[2025-02-26 15:06] VITALS: BP 120/82; PULSE 74; BMI 29.1
--- NOTE | 2025-02-26 15:06 | A.OFFVIS_ITS ---
Vital Signs 02/26/25 15:06 Height 5 ft 4 in Weight 169 lb 12.095 oz BMI 29.1 BP 120/82 Blood Pressure Location Lt brachial Position Sitting Pulse 74 Intake Visit Reasons: 1 yr f/up s/p echo Intake Note: 1 year follow-up ekg with echo results feeling good Clinical Applications Specialist Required: No Allergies No Known Allergies Allergy (Verified 01/07/25 14:49) Medication List - Last Reconciled 02/26/25 by Tim Bhandari MD amlodipine 5 mg PO DAILY lisinopril 30 mg PO DAILY peg 3350-electrolytes 236-22.74-6.74 -5.86 gram (Golytely) 240 mL PO Q10M psyllium husk (Metamucil) 1 tbsp PO DAILY HPI Comments Details: Nery comes for follow-up. She is doing intense walking, 10 miles every other day without any significant cardiac symptoms. Denies any exertional chest pain or shortness of breath. Takes all her medications. She says that she has lost lot of weight and a blood pressure is much better control at this point time. Recent echocardiogram shows mildly enlarged thoracic aorta along with normal LV ejection fraction. Denies any heart failure symptoms. No lightheadedness, syncope, prolonged palpitation irregular heartbeat. [facility] Medical History HTN (hypertension) Ascending aorta enlargement Social History Patient Tobacco Use Status: Never used Tobacco Review of Systems Const Denies chills, Denies fatigue, Denies fever(s), Denies frequent falls, Denies weakness, Denies weight gain and Denies weight loss ENT Denies dizziness Card Denies chest pain, Denies leg edema, Denies lightheadedness, Denies palpitations, Denies dyspnea, Denies dyspnea on exertion, Denies orthopnea and Denies other (loss of consciousness) Resp Denies cough, Denies dyspnea and Denies dyspnea on exertion GI Denies hematochezia and Denies change in stool character Musc Denies abnormal gait, Denies muscle weakness, Denies numbness, Denies radiating pain into limb and Denies tingling Neuro Denies Abnormal speech present, Denies abnormal gait, Denies dizziness, Denies frequent falls, Denies numbness, Denies tingling and Denies weakness Endo Denies fatigue and Denies palpitations Physical Exam Vital Signs: Last Vital Signs Pulse 74 02/26/25 15:06 BP 120/82 02/26/25 15:06 BMI result Body Mass Index 29.1 Neuro Speech: No Abnormal speech present Office Procedures EKG Details: EKG shows normal sinus rhythm with poor R-wave progression otherwise normal EKG 99882-[id number], Complete Assessment & Plan Assessment & Plan (1) Ascending aorta enlargement: Code(s): I77.89 - Other specified disorders of arteries and arterioles Category: Medical Plan: Mild thoracic aortic enlargement which has remained stable. No change in therapy at this point time. Continue aggressive blood pressure control, see below. Annual echocardiogram will be pursued. Advised to avoid sudden strenuous isometric exercise. Targets for repair were discussed with her as well. (2) HTN (hypertension): Code(s): I10 - Essential (primary) hypertension Category: Medical Plan: Hypertension which is currently well optimized. Advised to monitor blood pressure at home maintain a log. Goal blood pressure less 130/84. Low-salt diet was discussed. Encouraged to continue maintain physical activity as tolerated. Will follow up in the clinic in 1 year's time, sooner p.r.n.. Thank you for allowing me to partake in her care Coding Level of Care Code Est Pt Level 4 (89278) Complex EM visit Add On G2211 Diagnoses Ascending aorta enlargement I77.89 HTN (hypertension) I10 CPT Codes EKG - CPT: 61949-[id number], Complete ([id number])
--- OUTSIDE RECORDS SUMMARY | 2025-02-26 16:16 | XMS_ITS | Encounter Summary ---
Author Organization [facility] Address [address] [place] [address] Care Team Providers Care Respiratory Medicine Physician Name Role Phone Physician, No Pcp Primary Care Provider Unavaila ble Encounter Details Date Type Department Care Team (Latest Contact Info) Description 01/15/2025 Lab Requisition [facility] - Main Lab [address] [place] [phone] Tashia Crocker MD [address] [phone] Encounter for gynecological examination (general) (routine) without [...] lesion or malignancy 01/16/2025 11:58 AM EDT [facility] General Categorization Negative 01/16/2025 11:58 AM EDT [facility] Specimen Adequacy Satisfactory for evaluation, endocervical/martinez sformation zone component present 01/16/2025 11:58 AM EDT [facility] Pap Methodology Liquid Based Pap Test 01/16/2025 11:58 AM EDT [facility] Disclaimer The Pap test is a screening test which carries an inherent false negative rate. These test results should be correlated with the patient's clinical findings and history. This Pap test was processed using an automated screening system. Technical cytopathology services provided by [facility], at [address] [place] [address] (CLIA # [id number]/Marcie Holcomb MD, Chief Administrative Officer.) 01/16/2025 11:58 AM T [facility] Console Pap Interpretation Reported 01/16/2025 11:58 AM [facility] Brushing/Spatula Cervix uteri structure / Unknown 01/14/2025 01/15/2025 7:29 AM EDT us Tashia Crocker MD LAB CYTOLOGY ORDERABLES Final Result [facility] [address] [place] [address], documented in this encounter Visit Diagnoses Diagnosis Encounter for gynecological examination (general) (routine) without abnormal findings documented in this encounter Care Teams Respiratory Medicine Physician Relationship Specialty Start Date End Date Physician, No Pcp PCP - General 01/07/25 documented as of this encounter
--- OUTSIDE RECORDS SUMMARY | 2025-02-26 16:16 | XMS_ITS | Encounter Summary ---
Author Organization [facility] Address [address] [place] [address] Care Team Providers Care Area Supervisor Name Role Phone Physician, No Pcp Primary Care Provider Unavaila ble Encounter Details Date Type Department Care Team (Late st Contact Info) Description 01/14/2025 Lab Requisition [facility] - Main Lab 299 [facility] [place] [phone] Tashia Crocker MD 299 [facility] [address] [place] [phone] Unspecified external cause status Social History Tobacco [...] with reflex microscopic (01/14/2025 12:00 AM EDT) [facility] Specific [place] Urine LAB URINALYSIS - AUTOMATED METHOD 01/16/2025 11:59 AM EDT [facility] Comment: ATTENTION - WRONG PATIENT: ??Please do not use for clinical decision making as these results do not belong to this patient. Due to regulatory guidelines, incorrect results are to remain on the patient's chart. Corrected result: Previously reported as 1.001 on 01/14/2025 at 1923 EDT. pH, Urine LAB URINALYSIS - AUTOMATED METHOD 01/16/2025 11:59 AM EDT [facility] Comment: ATTENTION - WRONG PATIENT: ??Please do not use for clinical decision making as these results do not belong to this patient. Due to regulatory guidelines, incorrect results are to remain on the patient's chart. Corrected result: Previously reported as 7.5 pH on 01/14/2025 at 1923 EDT. Leukocytes, Urine LAB URINALYSIS - AUTOMATED METHOD 01/16/2025 11:59 AM EDT [facility] Comment: ATTENTION - WRONG PATIENT: ??Please do not use for clinical decision making as these results do not belong to this patient. Due to regulatory guidelines, incorrect results are to remain on the patient's chart. Corrected result: Previously reported as Trace on 01/14/2025 at 1923 EDT. Nitrite, Urine LAB URINALYSIS - AUTOMATED METHOD 01/16/2025 11:59 AM EDT [facility] Comment: ATTENTION - WRONG PATIENT: ??Please do not use for clinical decision making as these results do not belong to this patient. Due to regulatory guidelines, incorrect results are to remain on the patient's chart. Corrected result: Previously reported as Negative on 01/14/2025 at 1923 EDT. Protein, Urine LAB URINALYSIS - AUTOMATED METHOD 01/16/2025 11:59 AM EDT [facility] Comment: ATTENTION - WRONG PATIENT: ??Please do not use for clinical decision making as these results do not belong to this patient. Due to regulatory guidelines, incorrect results are to remain on the patient's chart. Corrected result: Previously reported as Negative mg/dL on 01/14/2025 at 1923 EDT. Glucose, Urine LAB URINALYSIS - AUTOMATED METHOD 01/16/2025 11:59 AM EDT [facility] Comment: ATTENTION - WRONG PATIENT: ??Please do not use for clinical decision making as these results do not belong to this patient. Due to regulatory guidelines, incorrect results are to remain on the patient's chart. Corrected result: Previously reported as Negative mg/dL on 01/14/2025 at 1923 EDT. Ketones, Urine LAB URINALYSIS - AUTOMATED METHOD 01/16/2025 11:59 AM EDT [facility] Comment: ATTENTION - WRONG PATIENT: ??Please do not use for clinical decision making as these results do not belong to this patient. Due to regulatory guidelines, incorrect results are to remain on the patient's chart. Corrected result: Previously reported as Negative mg/dL on 01/14/2025 at 1923 EDT. Urobilinogen, Urine LAB URINALYSIS - AUTOMATED METHOD 01/16/2025 11:59 AM EDT [facility] Comment: ATTENTION - WRONG PATIENT: ??Please do not use for clinical decision making as these results do not belong to this patient. Due to regulatory guidelines, incorrect results are to remain on the patient's chart. Corrected result: Previously reported as 0.2 mg/dL on 01/14/2025 at 1923 EDT. Bilirubin, Urine LAB URINALYSIS - AUTOMATED METHOD 01/16/2025 11:59 AM EDT [facility] Comment: ATTENTION - WRONG PATIENT: ??Please do not use for clinical decision making as these results do not belong to this patient. Due to regulatory guidelines, incorrect results are to remain on the patient's chart. Corrected result: Previously reported as Negative on 01/14/2025 at 1923 EDT. Blood, Urine LAB URINALYSIS - AUTOMATED METHOD 01/16/2025 11:59 AM EDT [facility] Comment: ATTENTION - WRONG PATIENT: ??Please do not use for clinical decision making as these results do not belong to this patient. Due to regulatory guidelines, incorrect results are to remain on the patient's chart. Corrected result: Previously reported as Negative on 01/14/2025 at 1923 EDT. RBC, Urine LAB URINALYSIS - AUTOMATED METHOD 01/16/2025 11:59 AM EDT [facility] Comment: ATTENTION - WRONG PATIENT: ??Please do not use for clinical decision making as these results do not belong to this patient. Due to regulatory guidelines, incorrect results are to remain on the patient's chart. Corrected result: Previously reported as 0.3 /HPF on 01/14/2025 at 1923 EDT. WBC, Urine LAB URINALYSIS - AUTOMATED METHOD 01/16/2025 11:59 AM EDT [facility] Comment: ATTENTION - WRONG PATIENT: ??Please do not use for clinical decision making as these results do not belong to this patient. Due to regulatory guidelines, incorrect results are to remain on the patient's chart. Corrected result: Previously reported as 0.3 /HPF on 01/14/2025 at 1923 EDT. Squamous Epithelial, Urine LAB URINALYSIS - AUTOMATED METHOD 01/16/2025 11:59 AM EDT [facility] Comment: ATTENTION - WRONG PATIENT: ??Please do not use for clinical decision making as these results do not belong to this patient. Due to regulatory guidelines, incorrect results are to remain on the patient's chart. Corrected result: Previously reported as 27 /LPF on 01/14/2025 at 1923 EDT. Bacteria, Urine LAB URINALYSIS - AUTOMATED METHOD 01/16/2025 11:59 AM EDT [facility] Comment: ATTENTION - WRONG PATIENT: ??Please do not use for clinical decision making as these results do not belong to this patient. Due to regulatory guidelines, incorrect results are to remain on the patient's chart. Corrected result: Previously reported as Few /HPF on 01/14/2025 at 1923 EDT. Hyaline Casts, Urine LAB URINALYSIS - AUTOMATED METHOD 01/16/2025 11:59 AM EDT [facility] Comment: ATTENTION - WRONG PATIENT: [...] loretta Result - Final Performing Organization Address [facility]/ZIP Co de Phone Number [facility] [address] [place] [address], [place] [phone] * Culture urine (01/14/2025 12:00 AM EDT) Culture, Urine See comment 01/16/2025 1:24 PM EDT [facility] Urine Urine specimen obtained by clean catch procedure / Unknown 01/14/2025 01/14/2025 5:51 PM EDT Narrative [facility] - 01/16/2025 1:24 PM EDT Please disregard previously reported result. ??Specimen mislabeled. ?? us Tashia Crocker MD LAB MICROBIOLOGY - GENER AL ORDERABLES Final Result Performing Organization Address City/[facility]/ZIP Co de Phone Number [facility] [address] [place] [address], [place] [phone] documented in this encounter Visit Diagnoses Diagnosis Unspecified external cause status documented in this encounter Care Teams Area Supervisor Relationship Specialty Start Date End Date Physician, No Pcp PCP - General 01/07/25 documented as of this encounter
--- OUTSIDE RECORDS SUMMARY | 2025-02-26 16:16 | XMS_ITS | Clinical Summary ---
Author Organization [facility] Address [address] [place] [address] Phone Care Team Providers Care Diesel Service Technician Name Role Phone Physician, No Pcp Primary Care Provider Unavaila ble Encounters Date Type Department Care Team Description 01/15/2025 Lab Requisition [facility] Lab [address] [place] [phone] Sam Crocker MD Encounter for gynecological examination (general) (routine) without abnormal findings 01/14/2025 Lab Requisition [facility] Lab [address] [place] [phone] Sam Crocker MD Unspecified external cause status [...] Screening 10/06/2022 COVID-19 Vaccine ( season) 2024 Pneumococcal Vaccine: 50+ Years (1 of 1 - PCV) 2025 Zoster Vaccines (1 of 2) 2025 Influenza Vaccine (Season Ended) 2025 Breast Cancer [...] reflex microscopic (01/14/2025 12:00 AM EDT) Specific [place] Urine LAB URINALYSIS - AUTOMATED METHOD 01/16/2025 11:59 AM EDT [facility] Comment: ATTENTION - WRONG PATIENT: ??Please do not use for clinical decision making as these results do not belong to this patient. Due to regulatory guidelines, incorrect results are to remain on the patient's chart. Corrected result: Previously reported as 1.001 on 01/14/2025 at 1923 EDT. pH, Urine LAB URINALYSIS - AUTOMATED METHOD 01/16/2025 11:59 AM EDT [facility] Comment: ATTENTION - WRONG PATIENT: ??Please do not use for clinical decision making as these results do not belong to this patient. Due to regulatory guidelines, incorrect results are to remain on the patient's chart. Corrected result: Previously reported as 7.5 pH on 01/14/2025 at 1923 EDT. Leukocytes, Urine LAB URINALYSIS - AUTOMATED METHOD 01/16/2025 11:59 AM EDT [facility] Comment: ATTENTION - WRONG PATIENT: ??Please do not use for clinical decision making as these results do not belong to this patient. Due to regulatory guidelines, incorrect results are to remain on the patient's chart. Corrected result: Previously reported as Trace on 01/14/2025 at 1923 EDT. Nitrite, Urine LAB URINALYSIS - AUTOMATED METHOD 01/16/2025 11:59 AM EDT [facility] Comment: ATTENTION - WRONG PATIENT: ??Please do not use for clinical decision making as these results do not belong to this patient. Due to regulatory guidelines, incorrect results are to remain on the patient's chart. Corrected result: Previously reported as Negative on 01/14/2025 at 1923 EDT. Protein, Urine LAB URINALYSIS - AUTOMATED METHOD 01/16/2025 11:59 AM EDT [facility] Comment: ATTENTION - WRONG PATIENT: ??Please do not use for clinical decision making as these results do not belong to this patient. Due to regulatory guidelines, incorrect results are to remain on the patient's chart. Corrected result: Previously reported as Negative mg/dL on 01/14/2025 at 1923 EDT. Glucose, Urine LAB URINALYSIS - AUTOMATED METHOD 01/16/2025 11:59 AM EDT [facility] Comment: ATTENTION - WRONG PATIENT: ??Please do not use for clinical decision making as these results do not belong to this patient. Due to regulatory guidelines, incorrect results are to remain on the patient's chart. Corrected result: Previously reported as Negative mg/dL on 01/14/2025 at 1923 EDT. Ketones, Urine LAB URINALYSIS - AUTOMATED METHOD 01/16/2025 11:59 AM EDT [facility] Comment: ATTENTION - WRONG PATIENT: ??Please do not use for clinical decision making as these results do not belong to this patient. Due to regulatory guidelines, incorrect results are to remain on the patient's chart. Corrected result: Previously reported as Negative mg/dL on 01/14/2025 at 1923 EDT. Urobilinogen, Urine LAB URINALYSIS - AUTOMATED METHOD 01/16/2025 11:59 AM EDT [facility] Comment: ATTENTION - WRONG PATIENT: ??Please do not use for clinical decision making as these results do not belong to this patient. Due to regulatory guidelines, incorrect results are to remain on the patient's chart. Corrected result: Previously reported as 0.2 mg/dL on 01/14/2025 at 1923 EDT. Bilirubin, Urine LAB URINALYSIS - AUTOMATED METHOD 01/16/2025 11:59 AM EDT [facility] Comment: ATTENTION - WRONG PATIENT: ??Please do not use for clinical decision making as these results do not belong to this patient. Due to regulatory guidelines, incorrect results are to remain on the patient's chart. Corrected result: Previously reported as Negative on 01/14/2025 at 1923 EDT. Blood, Urine LAB URINALYSIS - AUTOMATED METHOD 01/16/2025 11:59 AM EDT [facility] Comment: ATTENTION - WRONG PATIENT: ??Please do not use for clinical decision making as these results do not belong to this patient. Due to regulatory guidelines, incorrect results are to remain on the patient's chart. Corrected result: Previously reported as Negative on 01/14/2025 at 1923 EDT. RBC, Urine LAB URINALYSIS - AUTOMATED METHOD 01/16/2025 11:59 AM EDT [facility] Comment: ATTENTION - WRONG PATIENT: ??Please do not use for clinical decision making as these results do not belong to this patient. Due to regulatory guidelines, incorrect results are to remain on the patient's chart. Corrected result: Previously reported as 0.3 /HPF on 01/14/2025 at 1923 EDT. WBC, Urine LAB URINALYSIS - AUTOMATED METHOD 01/16/2025 11:59 AM EDT [facility] Comment: ATTENTION - WRONG PATIENT: ??Please do not use for clinical decision making as these results do not belong to this patient. Due to regulatory guidelines, incorrect results are to remain on the patient's chart. Corrected result: Previously reported as 0.3 /HPF on 01/14/2025 at 1923 EDT. Squamous Epithelial, Urine LAB URINALYSIS - AUTOMATED METHOD 01/16/2025 11:59 AM EDT [facility] Comment: ATTENTION - WRONG PATIENT: ??Please do not use for clinical decision making as these results do not belong to this patient. Due to regulatory guidelines, incorrect results are to remain on the patient's chart. Corrected result: Previously reported as 27 /LPF on 01/14/2025 at 1923 EDT. Bacteria, Urine LAB URINALYSIS - AUTOMATED METHOD 01/16/2025 11:59 AM EDT [facility] Comment: ATTENTION - WRONG PATIENT: ??Please do not use for clinical decision making as these results do not belong to this patient. Due to regulatory guidelines, incorrect results are to remain on the patient's chart. Corrected result: Previously reported as Few /HPF on 01/14/2025 at 1923 EDT. Hyaline Casts, Urine LAB URINALYSIS - AUTOMATED METHOD 01/16/2025 11:59 AM EDT [facility] Comment: ATTENTION - WRONG PATIENT: [...] Unknown 01/14/2025 01/14/2025 5:51 PM EDT us Sam Crocker MD LAB URINE ORDERABLES Rene loretta Result - Final Performing Organization Address [facility]/ZIP Co de Phone Number [facility] [address] [place] [address], [place] [phone] * Culture urine (01/14/2025 12:00 AM EDT) Culture, Urine See comment 01/16/2025 1:24 PM EDT [facility] Urine Urine specimen obtained by clean catch procedure / Unknown 01/14/2025 01/14/2025 5:51 PM EDT Narrative [facility] - 01/16/2025 1:24 PM EDT Please disregard previously reported result. ??Specimen mislabeled. ?? us Sam Crocker MD LAB MICROBIOLOGY - GENER AL ORDERABLES Final Result Performing Organization Address [facility] de Phone Number [facility] [address] [place] [address], [place] [phone] * Pap smear (01/14/2025 12:00 AM EDT) Interpretation Negative for intraepithelial lesion or malignancy 01/16/2025 11:58 AM EDT [facility] General Categorization Negative 01/16/2025 11:58 AM EDT [facility] Specimen Adequacy Satisfactory for evaluation, endocervical/martinez sformation zone component present 01/16/2025 11:58 AM EDT [facility] Pap Methodology Liquid Based Pap Test 01/16/2025 11:58 AM EDT [facility] Disclaimer The Pap test is a screening test which carries an inherent false negative rate. These test results should be correlated with the patient's clinical findings and history. This Pap test was processed using an automated screening system. Technical cytopathology services provided by [facility], at [address] [place] [address] (CLIA # [id number]/Marcie Holcomb MD, Food Beverage Server.) 01/16/2025 11:58 AM EDT [facility] Console Pap Interpretation Reported 01/16/2025 11:58 AM EDT [facility] Brushing/Spatula Cervix uteri structure / Unknown 01/14/2025 01/15/2025 7:29 AM EDT us Sam Crocker MD LAB CYTOLOGY ORDERABLES Final Result [facility] [address] [place] [address], * GAUTAM SCREENING DIGITAL (01/06/2024 3:33 PM EDT) Anatomical Region Laterality Modality Mammography 01/06/2024 3:10 PM EDT Narrative 01/06/2024 3:33 PM EDT [facility] Diagnostic Imaging Department [address] [place] [address] Patient: ??NASEEM KINGSLEYELLA ?/Age/Sex: 1975 - - Unit#: ??[id number] ? Location/Status: ??SPDIMAM/REG CLI ? Mnemonic/Ordering Site: ??DIGSC/SPMAM Ordering Physician: ??SAM LARKIN MD [facility] Screening Digital - 01/06/24 - 1521 Report Status:Signed EXAM: [facility] Screening Digital EXAM DATE AND TIME: 01/06/2024 3:22 PM HISTORY: ??Annual screening COMPARISON: ??Multiple exams dating back to 2016 TECHNIQUE: Bilateral digital breast tomosynthesis was performed in the CC and MLO projections. Computer aided detection with [employer] 3D 3.1 was employed. TISSUE DENSITY: b. [...] Procedure Note Melissa Tillman MD - 06/11/2024 [facility] Diagnostic Imaging Department [address] [place] [address] Patient: KINGSLEY,NU /Age/Sex: 1975 - 48 - F Unit#: [id number] Location/Status: SPDIMAM/REG CLI Mnemonic/Ordering Site: [facility] Ordering Physician: SAM LARKIN MD [facility] Screening Digital - 01/06/24 - 1521 Report Status:Signed EXAM: [facility] Screening Digital EXAM DATE AND TIME: 01/06/2024 3:22 PM HISTORY: Annual screening COMPARISON: Multiple exams dating back to 2016 TECHNIQUE: Bilateral digital breast tomosynthesis was performed in the CCand MLO projections. Computer aided detection with [employer] 3D 3.1was employed. TISSUE DENSITY: b. There [...] Date/Time: 01/06/24 1531 Sign date/Time: 01/06/24 1533 us Sam Crocker MD IMG BI PROCEDURES Final Result from Last 3 Months or Most Recently Relevant to Health Maintenance Insurance [place] [employer] [facility] Care Teams Diesel Service Technician Relationship Specialty Start Date End Date Physician, No Pcp PCP - General 01/07/25
== END 2025-02-26 15:26 | disposition home or self-care (01) ==
LOC: HO.HCS 15:04
PROVIDERS: PCP Nurse Practitioner Family; Visit Provider Internal Medicine Cardiovascular Disease
DX: I77.89 Other specified disorders of arteries and arterioles (principal); I10 Essential (primary) hypertension
CPT/HCPCS: 93010; 99214

== ENCOUNTER → 2025-02-26 15:03 | Outpatient (BNVA) | payer OTHER, SELFPAY | PROVIDERS: PCP Nurse Practitioner Family; Visit Provider Internal Medicine Cardiovascular Disease | DX: I77.89 Other specified disorders of arteries and arterioles (principal); I10 Essential (primary) hypertension | CPT/HCPCS: 93005 ==

== ENCOUNTER 2025-03-20 09:06 | Outpatient (REF) | payer OTHER, SELFPAY ==
--- NOTE | ~2025-03-20 | US_ITS ---
EXAMINATION: US DIAGNOSTIC ULTRASOUND BREAST, LEFT CLINICAL INFORMATION: 6 month follow-up for complicated cyst versus solid mass in the left breast at 5:00 6 cm from the nipple.. COMPARISON: Comparison is made with relevant prior imaging. TECHNIQUE: Ultrasound of the breast is performed with real-time tafoya scale imaging and color Doppler. FINDINGS: Targeted color Doppler ultrasound scanning in the left breast at 5:00 6 cm from nipple again demonstrates a hypoechoic oval circumstance solid mass versus complicated cyst measuring 3 x 3 x 3 mm not significantly changed from prior. There is no internal vascular flow. Results are discussed with the patient at time of visit. US/US breast LT limited mamm only IMPRESSION: Hypoechoic oval solid mass versus complicated cyst in the left breast at 5:00 6 cm from the nipple not significantly changed from prior ultrasound. Recommend 6 month follow-up ultrasound for further evaluation of stability. ASSESSMENT: BI-RADS 3: Probably Benign RECOMMENDATION: Diagnostic mammography in 6 months. This patient's information was entered into a reminder system with a target due date for their next mammogram. Electronically signed by: Lori Lay DO 03/20/2025 11:23 AM EDT
--- OUTSIDE RECORDS SUMMARY | 2025-03-20 09:38 | XMS_ITS | Clinical Summary ---
Author Organization [facility] Address [address] [place] [address] Phone Care Team Providers Care Corsetier Name Role Phone Physician, No Pcp Primary Care Provider Unavaila ble Encounters Date Type Department Care Team Description 01/15/[address] [facility] Lab [address] [place] [phone] Sam Crocker MD Encounter for gynecological examination (general) (routine) without abnormal findings 01/14/[address] [facility] Lab [address] [place] [phone] Sam Crocker MD Unspecified external cause status [...] reflex microscopic (01/14/2025 12:00 AM EDT) Specific [place] Urine LAB URINALYSIS - AUTOMATED METHOD 01/16/2025 11:[address] [facility] Comment: ATTENTION - WRONG PATIENT: ??Please do not use for clinical decision making as these results do not belong to this patient. Due to regulatory guidelines, incorrect results are to remain on the patient's chart. Corrected result: Previously reported as 1.001 on 01/14/2025 at 1923 EDT. pH, Urine LAB URINALYSIS - AUTOMATED METHOD 01/16/2025 11:[address] [facility] Comment: ATTENTION - WRONG PATIENT: ??Please do not use for clinical decision making as these results do not belong to this patient. Due to regulatory guidelines, incorrect results are to remain on the patient's chart. Corrected result: Previously reported as 7.5 pH on 01/14/2025 at 1923 EDT. Leukocytes, Urine LAB URINALYSIS - AUTOMATED METHOD 01/16/2025 11:[address] [facility] Comment: ATTENTION - WRONG PATIENT: ??Please do not use for clinical decision making as these results do not belong to this patient. Due to regulatory guidelines, incorrect results are to remain on the patient's chart. Corrected result: Previously reported as Trace on 01/14/2025 at 1923 EDT. Nitrite, Urine LAB URINALYSIS - AUTOMATED METHOD 01/16/2025 11:[address] [facility] Comment: ATTENTION - WRONG PATIENT: ??Please do not use for clinical decision making as these results do not belong to this patient. Due to regulatory guidelines, incorrect results are to remain on the patient's chart. Corrected result: Previously reported as Negative on 01/14/2025 at 1923 EDT. Protein, Urine LAB URINALYSIS - AUTOMATED METHOD 01/16/2025 11:[address] [facility] Comment: ATTENTION - WRONG PATIENT: ??Please do not use for clinical decision making as these results do not belong to this patient. Due to regulatory guidelines, incorrect results are to remain on the patient's chart. Corrected result: Previously reported as Negative mg/dL on 01/14/2025 at 1923 EDT. Glucose, Urine LAB URINALYSIS - AUTOMATED METHOD 01/16/2025 11:[address] [facility] Comment: ATTENTION - WRONG PATIENT: ??Please do not use for clinical decision making as these results do not belong to this patient. Due to regulatory guidelines, incorrect results are to remain on the patient's chart. Corrected result: Previously reported as Negative mg/dL on 01/14/2025 at 1923 EDT. Ketones, Urine LAB URINALYSIS - AUTOMATED METHOD 01/16/2025 11:[address] [facility] Comment: ATTENTION - WRONG PATIENT: ??Please do not use for clinical decision making as these results do not belong to this patient. Due to regulatory guidelines, incorrect results are to remain on the patient's chart. Corrected result: Previously reported as Negative mg/dL on 01/14/2025 at 1923 EDT. Urobilinogen, Urine LAB URINALYSIS - AUTOMATED METHOD 01/16/2025 11:[address] [facility] Comment: ATTENTION - WRONG PATIENT: ??Please do not use for clinical decision making as these results do not belong to this patient. Due to regulatory guidelines, incorrect results are to remain on the patient's chart. Corrected result: Previously reported as 0.2 mg/dL on 01/14/2025 at 1923 EDT. Bilirubin, Urine LAB URINALYSIS - AUTOMATED METHOD 01/16/2025 11:[address] [facility] Comment: ATTENTION - WRONG PATIENT: ??Please do not use for clinical decision making as these results do not belong to this patient. Due to regulatory guidelines, incorrect results are to remain on the patient's chart. Corrected result: Previously reported as Negative on 01/14/2025 at 1923 EDT. Blood, Urine LAB URINALYSIS - AUTOMATED METHOD 01/16/2025 11:[address] [facility] Comment: ATTENTION - WRONG PATIENT: ??Please do not use for clinical decision making as these results do not belong to this patient. Due to regulatory guidelines, incorrect results are to remain on the patient's chart. Corrected result: Previously reported as Negative on 01/14/2025 at 1923 EDT. RBC, Urine LAB URINALYSIS - AUTOMATED METHOD 01/16/2025 11:[address] [facility] Comment: ATTENTION - WRONG PATIENT: ??Please do not use for clinical decision making as these results do not belong to this patient. Due to regulatory guidelines, incorrect results are to remain on the patient's chart. Corrected result: Previously reported as 0.3 /HPF on 01/14/2025 at 1923 EDT. WBC, Urine LAB URINALYSIS - AUTOMATED METHOD 01/16/2025 11:[address] [facility] Comment: ATTENTION - WRONG PATIENT: ??Please do not use for clinical decision making as these results do not belong to this patient. Due to regulatory guidelines, incorrect results are to remain on the patient's chart. Corrected result: Previously reported as 0.3 /HPF on 01/14/2025 at 1923 EDT. Squamous Epithelial, Urine LAB URINALYSIS - AUTOMATED METHOD 01/16/2025 11:[address] [facility] Comment: ATTENTION - WRONG PATIENT: ??Please do not use for clinical decision making as these results do not belong to this patient. Due to regulatory guidelines, incorrect results are to remain on the patient's chart. Corrected result: Previously reported as 27 /LPF on 01/14/2025 at 1923 EDT. Bacteria, Urine LAB URINALYSIS - AUTOMATED METHOD 01/16/2025 11:[address] [facility] Comment: ATTENTION - WRONG PATIENT: ??Please do not use for clinical decision making as these results do not belong to this patient. Due to regulatory guidelines, incorrect results are to remain on the patient's chart. Corrected result: Previously reported as Few /HPF on 01/14/2025 at 1923 EDT. Hyaline Casts, Urine LAB URINALYSIS - AUTOMATED METHOD 01/16/2025 11:[address] [facility] Comment: ATTENTION - WRONG PATIENT: [...] loretta Result - Final Performing Organization Address [facility]/ZIP Co de Phone Number [facility] [address] [place] [address], [place] [phone] * Culture urine (01/14/2025 12:00 AM EDT) Culture, Urine See comment 01/16/2025 1:[address] [facility] Urine Urine specimen obtained by clean catch procedure / Unknown 01/14/2025 01/14/2025 5:[address] [facility] - 01/16/2025 1:24 PM EDT Please disregard previously reported result. ??Specimen mislabeled. ?? us Sam Crocker MD LAB MICROBIOLOGY - GENER AL ORDERABLES Final Result Performing Organization Address [facility] de Phone Number [facility] [address] [place] [address], [place] [phone] * Pap smear (01/14/2025 12:00 AM EDT) Interpretation Negative for intraepithelial lesion or malignancy 01/16/2025 11:[address] [facility] General Categorization Negative 01/16/2025 11:[address] [facility] Specimen Adequacy Satisfactory for evaluation, endocervical/martinez sformation zone component present 01/16/2025 11:[address] [facility] Pap Methodology Liquid Based Pap Test 01/16/2025 11:[address] [facility] Disclaimer The Pap test is a screening test which carries an inherent false negative rate. These test results should be correlated with the patient's clinical findings and history. This Pap test was processed using an automated screening system. Technical cytopathology services provided by [facility], at [address] [place] [address] (CLIA # [id number]/Marcie Holcomb MD, Information Specialist.) 01/16/2025 11:[address] [facility] Console Pap Interpretation Reported 01/16/2025 11:[address] [facility] Brushing/Spatula Cervix uteri structure / Unknown 01/14/2025 01/15/2025 7:29 AM EDT us Sam Crocker MD LAB CYTOLOGY ORDERABLES Final Result [facility] [address] [place] [address], * GAUTAM SCREENING DIGITAL (01/06/2024 3:33 PM EDT) Anatomical Region Laterality Modality Mammography 01/06/2024 3:10 PM EDT Narrative 01/06/2024 3:33 PM EDT [facility] Diagnostic Imaging Department [address] [place] [address] Patient: ??NASEEM KINGSLEYELLA ?/Age/Sex: 1975 - - Unit#: ??[id number] ? Location/Status: ??SPDIMAM/REG CLI ? Mnemonic/Ordering Site: ??DIGSC/SPMAM Ordering Physician: ??SAM LARKIN MD [facility] Screening Digital - 01/06/24 - 1521 Report Status:Signed EXAM: [facility] Screening Digital EXAM DATE AND TIME: 01/06/2024 3:22 PM HISTORY: ??Annual screening COMPARISON: ??Multiple exams dating back to 2016 TECHNIQUE: Bilateral digital breast tomosynthesis was performed in the CC and MLO projections. Computer aided detection with [employer] 3D 3.1 was employed. TISSUE DENSITY: b. [...] Procedure Note Melissa Tillman MD - 06/11/2024 [facility] Diagnostic Imaging Department [address] [place] [address] Patient: KINGSLEY,NU /Age/Sex: 1975 - 48 - F Unit#: [id number] Location/Status: SPDIMAM/REG CLI Mnemonic/Ordering Site: [facility] Ordering Physician: SAM LARKIN MD [facility] Screening Digital - 01/06/24 - 1521 Report Status:Signed EXAM: [facility] Screening Digital EXAM DATE AND TIME: 01/06/2024 3:22 PM HISTORY: Annual screening COMPARISON: Multiple exams dating back to 2016 TECHNIQUE: Bilateral digital breast tomosynthesis was performed in the CCand MLO projections. Computer aided detection with [employer] 3D 3.1was employed. TISSUE DENSITY: b. There [...] Most Recently Relevant to Health Maintenance Insurance [employer] [facility] [place] [address] Care Teams Corsetier Relationship Specialty Start Date End Date Physician, No Pcp PCP - General 01/07/25
== END 2025-03-20 09:07 | disposition home or self-care (01) ==
LOC: HO.MAMMO 09:06
PROVIDERS: PCP Nurse Practitioner Family; Visit Provider Obstetrics & Gynecology
DX: N60.02 Solitary cyst of left breast (principal)
CPT/HCPCS: 76642

== ENCOUNTER → 2025-03-20 09:30 | Outpatient (BNV) | payer OTHER, SELFPAY | PROVIDERS: PCP Nurse Practitioner Family; Visit Provider Internal Medicine | DX: N63.21 Unspecified lump in the left breast, upper outer quadrant (principal) | CPT/HCPCS: 76642 ==

== ENCOUNTER 2025-05-17 10:13 | Outpatient (AMB) | payer OTHER, SELFPAY ==
[2025-05-17 10:15] VITALS: BP 108/80; PULSE 84; TEMP 36.6; O2SAT 97; BMI 28.7
--- NOTE | 2025-05-17 10:15 | AM.OFFWIN_ITS ---
Intake Vital Signs 05/17/25 10:15 Height 5 ft 4 in Weight 167 lb BMI 28.7 BP 108/80 Blood Pressure Location Lt brachial Position Sitting Pulse 84 Pulse Source Pulse Oximeter Temp 97.8 F Temp Source Oral Pulse Oximetry (%) 97 Oxygen Delivery Method Room Air Intake Visit Reasons: EP Sciatica Intake Note: presents with severe bilateral sciatica pain Patient Tobacco Use Status: Never used Tobacco Allergies No Known Allergies Allergy (Verified 05/17/25 10:21) Do you need a note to return to daycare/school/sports/work: Yes HPI HPI Comments History of Present Illness Details History - The patient is a 50-year-old female pr esenting with sciatica x 1 day. - She experiences pain starting in the l ower back, radiating down both legs, with the left side being more affected. - There is no associated loss of bladder or bowel control. - Treatment history includes cyclobenzap rine (Flexeril). Has not ever had to use prednisone. Physical Exam General: Cooperative, healthy appearing, comfortable, no acute distress and well developed Orientation: Patient oriented x3 Limitations: gingerly walking 2/2 pain Head: Normal to inspection Ears: Hearing grossly normal bilaterally Nose: Normal External nose present Face and sinus: Normal facial exam Mouth: normal, moist oral mucosa Eyes: Appearance normal, both eyes and all related structures Neck: Normal visual inspection and Yes full ROM Respiratory: Normal respiratory effort and able to speak in complete sentences. Skin: no rashes or lesions noted Neuro: Patient oriented x3 Extremities: Moving all extremities normally, straight leg positive bilaterally 30degrees on right, 20 degrees on left [facility] Medical History HTN (hypertension) Ascending aorta enlargement Social History Patient Tobacco Use Status: Never used Tobacco Review of Systems Const All systems reviewed & are unremarkable except as noted in HPI and below Physical Exam Vital Signs: Last Vital Signs Temp 97.8 F 05/17/25 10:15 Pulse 84 05/17/25 10:15 BP 108/80 05/17/25 10:15 Pulse Ox 97 05/17/25 10:15 Oxygen Delivery Method Room Air 05/17/25 10:15 BMI result Body Mass Index 28.7 Assessment & Plan Assessment & Plan (1) Low back pain with bilateral sciatica: Code(s): M54.42 - Lumbago with sciatica, left side; M54.41 - Lumbago with sciatica, right side Qualifiers: Chronicity: acute Back pain laterality: bilateral Qualified Code(s): M54.42 - Lumbago with sciatica, left side; M54.41 - Lumbago with sciatica, right side Plan: Plan Patient was informed and verbally consented to the use of an ambient scribe for clinic note documentation during this visit Sciatica - Patient declined predisone. - Prescribed cyclobenzaprine (Flexeril) 5 mg, with the option to take two tablets if needed, and advised to take Aleve for anti-inflammatory effect. - Recommended sciatica stretches from the [facility] website for prevention and resolution of symptoms. Medications: New cyclobenzaprine 5 mg PO Q8H PRN 20 tabs 0RF Muscle Spasm Coding Level of Care Code New Pt Level 3 (96663) Diagnoses Acute bilateral low back pain with bilateral sciatica M54.42; M54.41 Chronicity: acute Back pain laterality: bilateral
--- OUTSIDE RECORDS SUMMARY | 2025-05-17 10:29 | XMS_ITS | Clinical Summary ---
Author Organization [facility] [place] [address] Phone Care Team Providers Care Turning Machine Operator Name Role Phone Physician, No Pcp [...] DTaP,Tdap,and Td Vaccines (1 - Tdap) 1994 Colorectal Cancer Screening: Colonoscopy 10/06/2022 HIV Screening 10/06/2022 Hepatitis C Screening 10/06/2022 Social Influencers of Health Screening 10/06/2022 COVID-19 Vaccine ( - season) 2024 Depression Screening 10/24/2024 Pneumococcal Vaccine: 50+ Years (1 of 1 - PCV) 2025 Zoster Vaccines (1 of 2) 2025 Influenza Vaccine (#1) 2025 Breast Cancer Screening 01/05/2026 01/06/20 24, [...] gynecological examination (general) (routine) without abnormal findings GAUTAM SCREENING DIGITAL Routine 01/06/2024 3:33 PM EDT Encounter for screening mammogram for malignant neoplasm of breast from Last 3 Months or Most Recently Relevant to Health Maintenance Results * Pap smear (01/14/2025 12:00 AM EDT) Interpretation Negative for intraepithelial lesion or malignancy 01/16/2025 11:58 AM [facility] General Categorization Negative 01/16/2025 11:58 AM [facility] Specimen Adequacy Satisfactory for evaluation, endocervical/martinez sformation zone component present [facility] Pap Methodology Liquid Based Pap Test 01/16/2025 11:58 AM [facility] Disclaimer The Pap test is a screening test which carries an inherent false negative rate. These test results should be correlated with the patient's clinical findings and history. This Pap test was processed using an automated screening system. Technical cytopathology services provided by [facility], at [address] [place] [address], [place] [address] (CLIA # [id number]/Marcie Holcomb MD, Coal Gasification Technician.) 01/16/2025 11:58 AM EDT [facility]) [facility] Console Pap Interpretation Reported 01/16/2025 11:58 AM EDT [facility] Brushing/Spatula Cervix uteri structure / Unknown 01/14/2025 01/15/2025 7:29 AM EDT us Sam Crocker MD LAB CYTOLOGY ORDERABLES Final Result [facility] ([facility]) [facility] [address] [place] [address], * GAUTAM SCREENING DIGITAL (01/06/2024 3:33 PM EDT) Anatomical Region Laterality Modality Mammography 01/06/2024 3:10 PM EDT Narrative 01/06/2024 3:33 PM EDT [facility] Diagnostic Imaging Department [address] [place] [address] Patient: NU KINGSLEY D.O.B./Age/Sex: 1975 - 48 - F Unit#: [id number] [facility]Ordering [facility] Ordering Physician: SAM LARKIN MD Gautam Screening Digital - 01/06/24 - 1521 Report Status:Signed EXAM: Gautam Screening Digital EXAM DATE AND TIME: 01/06/2024 3:22 PM HISTORY: Annual screening COMPARISON: Multiple exams dating back to 2016 TECHNIQUE: Bilateral digital breast tomosynthesis was performed in the CC and MLO projections. Computer aided detection with [employer] 3D 3.1 was employed. TISSUE DENSITY: b. There are scattered areas of fibroglandular density. FINDINGS: Possible developing asymmetry in the outer left breast seen on the MLO view. No associated calcifications or architectural distortion. The right breast is unremarkable. IMPRESSION: Possible developing asymmetry in the outer left breast seen on the MLO view. Recommend diagnostic mammogram of the left breast with spot compression MLO tomographic views. BI-RADS: Category 0: Incomplete - Need Additional Imaging Evaluation Dictating Physician: MELISSA TILLMAN MD Electronically Signed by: MELISSA TILLMAN MD Dic Date/Time: 01/06/241530 Sign date/Time: 01/06/24 153 Procedure Note Melissa Tillman MD - 06/11/2024 [facility] Diagnostic Imaging Department [address] [place] [address] Patient: NASEEM KINGSLEYJESSICA DugganO.B./Age/Sex: 1975 - 48 - F Unit#: [id number] Location/Status: [facility] CLI Mnemonic/Ordering Site: [facility] Ordering Physician: SAM LARKIN MD [facility] Screening Digital - 01/06/24 - 1521 Report Status:Signed EXAM: [facility] Screening Digital EXAM DATE AND TIME: 01/06/2024 3:22 PM HISTORY: Annual screening COMPARISON: Multiple exams dating back to 2016 TECHNIQUE: Bilateral digital breast tomosynthesis was performed in the CCand MLO projections. Computer aided detection with El[employer] 3D 3.1was employed. TISSUE DENSITY: b. There [...] by: MELISSA TILLMAN MD Dic Date/Time: 01/06/24 153 Sign date/Time: 01/06/241532 Sam Crocker MD IMG BI PROCEDURES Final Result from Last 3 Months or Most Recently Relevant to Health Maintenance Insurance [facility] Care Teams Turning Machine Operator Relationship Specialty Start Date End Date Physician, No Pcp PCP - General 01/07/25
== END 2025-05-17 11:08 | disposition home or self-care (01) ==
PROVIDERS: PCP Nurse Practitioner Family; Visit Provider Physician Assistant
DX: M54.42 Lumbago with sciatica, left side (principal); M54.41 Lumbago with sciatica, right side

== ENCOUNTER 2025-05-20 09:12 | Outpatient (AMB) | payer OTHER, SELFPAY ==
--- OUTSIDE RECORDS SUMMARY | 2025-05-20 09:52 | XMS_ITS | Clinical Summary ---
Author Organization [facility] [place] [address] Phone Care Team Providers Care Call Center Team Leader Name Role Phone Physician, No Pcp Primary [...] intraepithelial lesion or malignancy 01/16/2025 11:58 AM [facility] General Categorization Negative 01/16/2025 11:58 AM [facility] Specimen Adequacy Satisfactory for evaluation, endocervical/martinez sformation zone component present 01/16/2025 11:[facility] Pap Methodology Liquid Based Pap Test 01/16/2025 11:58 AM [facility] Disclaimer The Pap test is a screening test which carries an inherent false negative rate. These test results should be correlated with the patient's clinical findings and history. This Pap test was processed using an automated screening system. Technical cytopathology services provided by [facility], at [address] [place] [address], [place] [address] (CLIA # [id number]/Marcie Holcomb MD, Orthotics Technician.) 01/16/2025 11:[address] [facility]) [facility] Console Pap Interpretation Reported 01/16/2025 11:58 AM EDT [facility] Brushing/Spatula Cervix uteri structure / Unknown 01/14/2025 01/15/2025 7:29 AM EDT us Sam Crocker MD LAB CYTOLOGY ORDERABLES Final Result [facility] ([facility]) [facility] [address] [place] [address], * GAUTAM SCREENING DIGITAL (01/06/2024 3:33 PM EDT) Anatomical Region Laterality Modality Mammography 01/06/2024 3:10 PM EDT Narrative 01/06/2024 3:33 PM EDT [facility] Diagnostic Imaging Department [address] [place] [address] Patient: NU KINGSLEY D.O.B./Age/Sex: 1975 - 48 - F Unit#: [id number] [facility]Ordering Site: [facility] Ordering Physician: SAM LARKIN MD Gautam Screening Digital - 01/06/24 - 1521 Report Status:Signed EXAM: Gautam Screening Digital EXAM DATE AND TIME: 01/06/2024 3:22 PM HISTORY: Annual screening COMPARISON: Multiple exams dating back to 2016 TECHNIQUE: Bilateral digital breast tomosynthesis was performed in the CC and MLO projections. Computer aided detection with [employer] 3D 3.1 was employed. TISSUE DENSITY: b. [...] Procedure Note Melissa Tillman MD - 06/11/2024 [facility] Diagnostic Imaging Department [address] [place] [address] Patient: NASEEM KINGSLEYJESSICA DugganO.B./Age/Sex: 1975 - 48 - F Unit#: [id number] Location/Status: [facility] CLI Mnemonic/Ordering Site: [facility] Ordering Physician: SAM LARKIN MD [facility] Screening Digital - 01/06/24 - 1521 Report Status:Signed EXAM: [facility] Screening Digital EXAM DATE AND TIME: 01/06/2024 3:22 PM HISTORY: Annual screening COMPARISON: Multiple exams dating back to 2016 TECHNIQUE: Bilateral digital breast tomosynthesis was performed in the CCand MLO projections. Computer aided detection with [employer] 3D 3.1was employed. TISSUE DENSITY: b. There [...] Most Recently Relevant to Health Maintenance Insurance [facility] Care Teams Call Center Team Leader Relationship Specialty Start Date End Date Physician, No Pcp PCP - General 01/07/25
[2025-05-20 10:09] VITALS: BP 114/86; PULSE 81; TEMP 36.8; O2SAT 99; BMI 28.4
--- NOTE | 2025-05-20 10:09 | AM.OFFWIN_ITS ---
Intake Vital Signs 05/20/25 10:09 Height 5 ft 4 in Weight 165 lb 6 oz BMI 28.4 BP 114/86 Blood Pressure Location Lt brachial Position Sitting Pulse 81 Pulse Source Pulse Oximeter Temp 98.3 F Temp Source Oral Pulse Oximetry (%) 99 Oxygen Delivery Method Room Air Intake Visit Reasons: EP Sciatica pain still Patient Tobacco Use Status: Never used Tobacco Insurance Claim Representative Required: No Is last menstrual period known: No Post menopausal: Yes Patient : No Allergies No Known Allergies Allergy (Verified 05/20/25 10:13) Do you need a note to return to daycare/school/sports/work: Yes HPI HPI Comments History of Present Illness Details History - The patient is a 50-year-old female pr esenting with musculoskeletal pain and right-sided hip pain radiating to the leg. - The pain began four days ago and is pe rsistent, primarily affecting the right side, extending into the hip and down the leg. - Muscle relaxers were tried with minima l relief, and there is no loss of bladder or bowel control. Physical Exam General: Cooperative, healthy appearing, comfortable, no acute distress and well developed Orientation: Patient oriented x3 Limitations: No limitations Head: Normal to inspection Ears: Hearing grossly normal bilaterally Nose: Normal External nose present Face and sinus: Normal facial exam Mouth: normal, moist oral mucosa Eyes: Appearance normal, both eyes and all related structures Neck: Normal visual inspection and Yes full ROM Respiratory: Normal respiratory effort and able to speak in complete sentences. Skin: no rashes or lesions noted Neuro: Patient oriented x3, gingerly walking with a normal gait Extremities: moving all extremities normally, + straight leg right side at 30 degrees [facility] Medical History HTN (hypertension) Ascending aorta enlargement Social History Patient Tobacco Use Status: Never used Tobacco Patient : No Review of Systems Const All systems reviewed & are unremarkable except as noted in HPI and below Physical Exam Vital Signs: Last Vital Signs Temp 98.3 F 05/20/25 10:09 Pulse 81 05/20/25 10:09 BP 114/86 05/20/25 10:09 Pulse Ox 99 05/20/25 10:09 Oxygen Delivery Method Room Air 05/20/25 10:09 BMI result Body Mass Index 28.4 Assessment & Plan Assessment & Plan (1) Low back pain with bilateral sciatica: Code(s): M54.42 - Lumbago with sciatica, left side; M54.41 - Lumbago with sciatica, right side Qualifiers: Chronicity: acute Back pain laterality: right Qualified Code(s): M54.42 - Lumbago with sciatica, left side; M54.41 - Lumbago with sciatica, right side Plan: Plan Patient was informed and verbally consented to the use of an ambient scribe for clinic note documentation during this visit - Prescribe prednisone 40 mg daily for five days to manage inflammation and pain. - Instruct the patient to take prednisone in the morning to minimize insomnia and manage side effects like increased appetite and mood swings. - Emphasize the importance of monitoring for any loss of bladder or bowel control, which would necessitate urgent medical evaluation. Medications: New prednisone 40 mg (2 x 20 mg) PO QAM 10 tabs 0RF Coding Level of Care Code New Pt Level 3 (08114) Diagnoses Acute right-sided low back pain with bilateral sciatica M54.42; M54.41 Chronicity: acute Back pain laterality: right
== END 2025-05-20 10:43 | disposition home or self-care (01) ==
PROVIDERS: PCP Nurse Practitioner Family; Visit Provider Physician Assistant
DX: M54.42 Lumbago with sciatica, left side (principal); M54.41 Lumbago with sciatica, right side

== ENCOUNTER 2025-06-06 06:03 | Outpatient (REF) | payer OTHER, SELFPAY ==
--- OUTSIDE RECORDS SUMMARY | 2025-06-06 06:04 | XMS_ITS | Clinical Summary ---
Author Organization [facility] [place] [address] Phone Care Team Providers Care Stone Carriage Operator Name Role Phone Physician, No Pcp [...] sformation zone component present [facility] Methodology Liquid Based Pap Test 01/16/2025 11:58 AM [facility] Disclaimer The Pap test is a screening test which carries an inherent false negative rate. These test results should be correlated with the patient's clinical findings and history. This Pap test was processed using an automated screening system. Technical cytopathology services provided by [facility], at [address] [place] [address], [place] [address] (CLIA # [id number]/Marcie Holcomb MD, Impregnator.) 01/16/2025 11:58 AM EDT [facility]) [facility] Console Pap Interpretation Reported 01/16/2025 11:58 AM EDT [facility] Brushing/Spatula Cervix uteri structure / Unknown 01/14/2025 01/15/2025 7:29 AM EDT us Sam Crocker MD LAB CYTOLOGY ORDERABLES Final Result [facility]) [facility] [address] [place] [address], * GAUTAM SCREENING DIGITAL (01/06/2024 3:33 PM EDT) Anatomical Region Laterality Modality Mammography 01/06/2024 3:10 PM EDT Narrative 01/06/2024 3:33 PM EDT [facility] Diagnostic Imaging Department [address] [place] [address] Patient: NU KINGSLEY D.O.B./Age/Sex: 1975 - 48 - F Unit#: [id number] [facility] Mn[facility]Ordering Site: [facility] Ordering Physician: SAM LARKIN MD Gautam Screening Digital - 01/06/24 - 1521 Report Status:Signed EXAM: Gautam Screening Digital EXAM DATE AND TIME: 01/06/2024 3:22 PM HISTORY: Annual screening COMPARISON: Multiple exams dating back to 2016 TECHNIQUE: Bilateral digital breast tomosynthesis was performed in the CC and MLO projections. Computer aided detection with [employer] 3D 3.1 was employed. TISSUE DENSITY: b. [...] Note Melissa Tillman MD - 06/11/2024 [facility] Diagnostic Imaging Department [address] [place] [address] Patient: NASEEM KINGSLEYJESSICA DugganO.B./Age/Sex: 1975 - 48 - F Unit#: [id number] Location/Status: [facility] CLI Mnemonic/Ordering Site: [facility] Ordering Physician: SAM LARKIN MD [facility] Screening Digital - 01/06/24 - 1521 Report Status:Signed EXAM: [facility] Screening Digital EXAM DATE AND TIME: 01/06/2024 3:22 PM HISTORY: Annual screening COMPARISON: Multiple exams dating back to 2016 TECHNIQUE: Bilateral digital breast tomosynthesis was performed in the CCand MLO projections. Computer aided detection with [employer] 3D 3.1was employed. TISSUE DENSITY: b. There [...] Most Recently Relevant to Health Maintenance Insurance [facility] Care Teams Stone Carriage Operator Relationship Specialty Start Date End Date Physician, No Pcp PCP - General 01/07/25
[2025-06-06 06:22] LABS: MANUAL DIFF FLAG NO
[2025-06-06 06:40] LABS: Hemoglobin A1C 129.1722 umol/L; Total Hemoglobin (HGBA1C) 3456.5439 umol/L
[2025-06-06 06:47] LABS: Alanine Aminotransferase 21 U/L (0-31); Albumin Level 4.3 g/dL (3.5-5.0); Alkaline Phosphatase 73 U/L (39-117); Anion Gap 12 (12-20); Aspartate Amino Transferase 20 U/L (5-31); Blood Urea Nitrogen 17 mg/dL (9-16); Calcium 9.3 mg/dL (8.4-10.2); Carbon Dioxide 26 mmol/L (22-29); Chloride 107 mmol/L (96-108); Cholesterol 258 mg/dL (<200); Estimated Glomerular Filt Rate > 60; HDL Cholesterol 57 mg/dL (>40); Potassium 4.0 mmol/L (3.3-5.1); Sodium 141 mmol/L (135-145); Total Protein 7.2 g/dL (6.5-8.0); Triglycerides 92 mg/dL (<150)
[2025-06-06 06:48] LABS: Hematocrit 40.0 % (37.0-47.0); Hemoglobin 13.3 g/dl (12.0-16.0); Imm Gran Abs Auto 0.02 X10*3/uL (0.00-0.03); Imm Gran Pct Auto 0.3 % (0.0-0.4); Lymphocytes Absolute Auto 2.1 X10*3/uL (1.2-4.9); Mean Corpuscular HGB Conc 33.3 g/dl (31.0-35.0); Mean Corpuscular Hemoglobin 28.5 pg (27.0-33.0); Mean Corpuscular Volume 85.8 fL (80.0-98.0); NRBC Abs Auto 0.000 X10*3/uL (0.0-0.012); NRBC Pct Auto 0.0 /100WBC (0.0-0.2); Platelet Count 332 X10*3/uL (160-400); Red Blood Count 4.66 X10*6/uL (4.20-5.50); White Blood Count 6.2 X10*3/uL (4.8-10.8)
[2025-06-06 07:04] LABS: Free T4 (Free Thyroxine) 1.13 ng/dL (0.71-1.85); Thyroid Stimulating Hormone 0.31 uIU/mL (0.32-4.0)
[2025-06-08 01:03] LABS: Follicle Stimulating Hormone 59.8 mIU/mL
[2025-06-20 23:34] LABS: Estradiol Ultra Sensitive 92 pg/mL
== END 2025-06-06 06:04 | disposition home or self-care (01) ==
LOC: HO.LAB 06:03
PROVIDERS: PCP Nurse Practitioner Family; Visit Provider Nurse Practitioner Family
DX: Z00.00 Encounter for general adult medical examination without abnormal findings (principal); Z78.0 Asymptomatic menopausal state; Z13.1 Encounter for screening for diabetes mellitus; I10 Essential (primary) hypertension; I77.819 Aortic ectasia, unspecified site; M54.9 Dorsalgia, unspecified
CPT/HCPCS: 36415; 80053; 80061; 82642; 82670; 83001; 83036; 84403; 84439; 84443; 85025

== ENCOUNTER 2025-06-12 19:05 | Outpatient (REF) | payer OTHER, SELFPAY ==
--- NOTE | ~2025-06-12 | MR_ITS ---
EXAMINATION: MR LUMBAR SPINE WITHOUT CONTRAST CLINICAL INFORMATION: Spinal stenosis. Right-sided radiculopathy. COMPARISON: None available. TECHNIQUE: MRI of the lumbar spine was obtained using routine sequences without contrast. FINDINGS: Last rib-bearing vertebra labeled T12. No bone marrow STIR signal abnormality. Bone marrow inhomogeneity throughout the axial skeleton and bony pelvis. There is normal alignment. The conus medullaris ends at pedicle of L1 with normal signal. T11-12: No disc herniation. No neuroforamina stenosis. T12-L1: No disc herniation. No neuroforamina stenosis. L1-2: Broad-based disc bulging. No central spinal canal or neuroforamina stenosis. L2-3: Broad-based disc bulging. No central spinal canal or neuroforamina stenosis. L3-4: Broad-based disc bulging. Facet joint and ligamentum flavum hypertrophy. Reduced AP diameter of the thecal sac and neuroforamina, right greater than the left side. L4-5: Broad-based disc bulging focal hyperintense T2 signal at the right foraminal component of the brain disc likely annular fissure. Facet joint and ligamentum flavum hypertrophy. Reduced AP diameter of the thecal sac and the neural foramina. L5-S1: Broad-based disc bulging. Facet joint hypertrophy. Bilateral neuroforamina narrowing, left greater than the right side. No gross central spinal canal stenosis. No prevertebral compartment hematoma, mass or fluid collection. Slight asymmetry volume loss of the right psoas muscle. Hyperintense T2 cystic lesion in the left kidney. MR/MR lumbar spine wo con IMPRESSION: Multilevel spondylosis from L2-3 to L5-S1 resulting in mild central spinal canal stenosis and neuroforamina narrowing. No herniated disc. Bone marrow inhomogeneity suggesting calcium metabolic disorders. Electronically signed by: Jesus Belle MD 06/13/2025 07:34 AM EDT
--- OUTSIDE RECORDS SUMMARY | 2025-06-12 19:07 | XMS_ITS | Clinical Summary ---
Author Organization [facility] [place] [address] Phone Care Team Providers Care Rehabilitation Case Coordinator Name Role Phone Physician, No Pcp Primary [...] sformation zone component present 01/16/2025 11:58 [facility] Pap Methodology Liquid Based Pap Test 01/16/2025 11:58 AM [facility] Disclaimer The Pap test is a screening test which carries an inherent false negative rate. These test results should be correlated with the patient's clinical findings and history. This Pap test was processed using an automated screening system. Technical cytopathology services provided by [facility], at [address] [place] [address], [place] [address] (CLIA # [id number]/Marcie Holcomb MD, Lay Brother.) 01/16/2025 11:58 AM EDT [facility] ([facility]) [facility] Console Pap Interpretation Reported 01/16/2025 11:58 AM EDT [facility] Brushing/Spatula Cervix uteri structure / Unknown 01/14/2025 01/15/2025 7:29 AM EDT us Sam Crocker MD LAB CYTOLOGY ORDERABLES Final Result [facility] ([facility]) [facility] [address] [place] [address], * GAUTAM SCREENING DIGITAL (01/06/2024 3:33 PM EDT) Anatomical Region Laterality Modality Mammography 01/06/2024 3:10 PM EDT Narrative 01/06/2024 3:33 PM EDT [facility] Diagnostic Imaging Department [address] [place] [address] Patient: NU KINGSLEY D.O.B./Age/Sex: 1975 - 48 - F Unit#: [id number] [facility]ing [facility] Ordering Physician: SAM LARKIN MD Gautam Screening Digital - 01/06/24 - 1521 Report Status:Signed EXAM: Gautam Screening Digital EXAM DATE AND TIME: 01/06/2024 3:22 PM HISTORY: Annual screening COMPARISON: Multiple exams dating back to 2016 TECHNIQUE: Bilateral digital breast tomosynthesis was performed in the CC and MLO projections. Computer aided detection with [employer] 3D 3.1 was employed. TISSUE DENSITY: b. [...] Note Melissa Tillman MD - 06/11/2024 [facility] Diagnostic Imaging Department [address] [place] [address] Patient: NASEEM KINGSLEYJESSICA DugganO.B./Age/Sex: 1975 - 48 - F Unit#: [id number] Location/Status: [facility] CLI Mnemonic/Ordering Site: [facility] Ordering Physician: SAM LARKIN MD [facility] Screening Digital - 01/06/24 - 1521 Report Status:Signed EXAM: [facility] Screening Digital EXAM DATE AND TIME: 01/06/2024 3:22 PM HISTORY: Annual screening COMPARISON: Multiple exams dating back to 2016 TECHNIQUE: Bilateral digital breast tomosynthesis was performed in the CCand MLO projections. Computer aided detection with [employer] 3D 3.1was employed. TISSUE DENSITY: b. There [...] Most Recently Relevant to Health Maintenance Insurance [facility] Care Teams Rehabilitation Case Coordinator Relationship Specialty Start Date End Date Physician, No Pcp PCP - General 01/07/25
== END 2025-06-12 19:06 | disposition home or self-care (01) ==
LOC: HO.MRI 19:05
PROVIDERS: PCP Nurse Practitioner Family; Visit Provider Nurse Practitioner Family
DX: M54.9 Dorsalgia, unspecified (principal)
CPT/HCPCS: 72148

== ENCOUNTER → 2025-06-12 19:20 | Outpatient (BNV) | payer OTHER, SELFPAY | PROVIDERS: PCP Nurse Practitioner Family; Visit Provider Radiology Diagnostic Radiology | DX: M48.061 Spinal stenosis, lumbar region without neurogenic claudication (principal) | CPT/HCPCS: 72148 ==

== ENCOUNTER 2025-08-12 13:00 | Outpatient (RCR) | payer OTHER, SELFPAY | END 2025-08-12 13:48 | disposition home or self-care (01) | LOC: HO.PT 13:00 | PROVIDERS: PCP Nurse Practitioner Family; Visit Provider Nurse Practitioner Family | DX: M54.50 Low back pain, unspecified (principal); G89.29 Other chronic pain; M47.817 Spondylosis without myelopathy or radiculopathy, lumbosacral region | CPT/HCPCS: 97110; 97140; 97161; 97530 ==

== ENCOUNTER 2025-09-23 07:54 | Outpatient (REF) | payer OTHER, SELFPAY ==
--- NOTE | ~2025-09-23 | US_ITS ---
EXAMINATION: US DIAGNOSTIC ULTRASOUND BREAST, LEFT CLINICAL INFORMATION: This is a 6-month follow-up of left breast hypoechoic nodule from the last study of March 14, 2025. This was first described at outside facility on the screening mammogram from January 06, 2024 and callback mammogram/ultrasound workup on January 13, 2024. COMPARISON: Multiple prior studies, most recent left breast ultrasound on March 14, 2025 and most recent bilateral mammogram on February 14, 2025. TECHNIQUE: Ultrasound of the breast is performed with real-time tafoya scale imaging and color Doppler. FINDINGS: Targeted ultrasound of the left breast was performed at the location of the previously described sonographic finding. The survey shows the hypoechoic mass at 5 o'clock position at 6 cm from the nipple measuring 0.3 x 0.2 x 0.3 cm. Prior sonographic measurements were 0.3 x 0.3 x 0.3 cm on March 14, 2025; 0.3 x 0.3 x 0.3 cm on July 16, 2024 and 0.5 x 0.4 x 0.5 cm on January 13, 2024. US/US Breast LT Limited Mamm Only IMPRESSION: Left breast: Hypoechoic mass at 5 o'clock position 6 cm from the nipple measuring 0.3 x 0.2 x 0.3 cm, unchanged from February 2025 and possibly smaller than in December 2023. Probably benign. A short-term follow-up is recommended as bilateral diagnostic mammogram and left breast ultrasound, expected in January 2026. Results are provided to the patient at time of visit by the technologist. ASSESSMENT: Category 3: Probably benign RECOMMENDATION: 6 Month F/U This patient's information was entered into a reminder system with a target due date for their next mammogram. Electronically signed by: Cami Navarro MD 09/23/2025 08:32 AM [facility]
--- OUTSIDE RECORDS SUMMARY | 2025-09-23 07:57 | XMS_ITS | Encounter Summary ---
Author Organization [facility] Address [address] [place] [address] Care Team Providers Care Linux System Engineer Name Role Phone Physician, No Pcp Primary Care Provider Unavaila ble Encounter Details Date Type Department Care Team (Late st Contact Info) Description 01/14/2025 Lab Requisition [facility] - Main Lab 299 [facility] [place] [phone] Tashia Crocker MD 299 [facility] [address] [place] [phone] Unspecified external cause status Social History Tobacco [...] with reflex microscopic (01/14/2025 12:00 AM EDT) [facility] Specific [place] Urine LAB URINALYSIS - AUTOMATED METHOD 01/16/2025 11:59 AM EDT [facility] Comment: ATTENTION - WRONG PATIENT: Please do not use for clinical decision making as these results do not belong to this patient. Due to regulatory guidelines, incorrect results are to remain on the patient's chart. Corrected result: Previously reported as 1.001 on 01/14/2025 at 1923 EDT. pH, Urine LAB URINALYSIS - AUTOMATED METHOD 01/16/2025 11:59 AM EDT [facility] Comment: ATTENTION - WRONG PATIENT: Please do not use for clinical decision making as these results do not belong to this patient. Due to regulatory guidelines, incorrect results are to remain on the patient's chart. Corrected result: Previously reported as 7.5 pH on 01/14/2025 at 1923 EDT. Leukocytes, Urine LAB URINALYSIS - AUTOMATED METHOD 01/16/2025 11:59 AM EDT [facility] Comment: ATTENTION - WRONG PATIENT: Please do not use for clinical decision making as these results do not belong to this patient. Due to regulatory guidelines, incorrect results are to remain on the patient's chart. Corrected result: Previously reported as Trace on 01/14/2025 at 1923 EDT. Nitrite, Urine LAB URINALYSIS - AUTOMATED METHOD 01/16/2025 11:59 AM EDT [facility] Comment: ATTENTION - WRONG PATIENT: Please do not use for clinical decision making as these results do not belong to this patient. Due to regulatory guidelines, incorrect results are to remain on the patient's chart. Corrected result: Previously reported as Negative on 01/14/2025 at 1923 EDT. Protein, Urine LAB URINALYSIS - AUTOMATED METHOD 01/16/2025 11:59 AM EDT [facility] Comment: ATTENTION - WRONG PATIENT: Please do not use for clinical decision making as these results do not belong to this patient. Due to regulatory guidelines, incorrect results are to remain on the patient's chart. Corrected result: Previously reported as Negative mg/dL on 01/14/2025 at 1923 EDT. Glucose, Urine LAB URINALYSIS - AUTOMATED METHOD 01/16/2025 11:59 AM EDT [facility] Comment: ATTENTION - WRONG PATIENT: Please do not use for clinical decision making as these results do not belong to this patient. Due to regulatory guidelines, incorrect results are to remain on the patient's chart. Corrected result: Previously reported as Negative mg/dL on 01/14/2025 at 1923 EDT. Ketones, Urine LAB URINALYSIS - AUTOMATED METHOD 01/16/2025 11:59 AM EDT [facility] Comment: ATTENTION - WRONG PATIENT: Please do not use for clinical decision making as these results do not belong to this patient. Due to regulatory guidelines, incorrect results are to remain on the patient's chart. Corrected result: Previously reported as Negative mg/dL on 01/14/2025 at 1923 EDT. Urobilinogen, Urine LAB URINALYSIS - AUTOMATED METHOD 01/16/2025 11:59 AM EDT [facility] Comment: ATTENTION - WRONG PATIENT: Please do not use for clinical decision making as these results do not belong to this patient. Due to regulatory guidelines, incorrect results are to remain on the patient's chart. Corrected result: Previously reported as 0.2 mg/dL on 01/14/2025 at 1923 EDT. Bilirubin, Urine LAB URINALYSIS - AUTOMATED METHOD 01/16/2025 11:59 AM EDT [facility] Comment: ATTENTION - WRONG PATIENT: Please do not use for clinical decision making as these results do not belong to this patient. Due to regulatory guidelines, incorrect results are to remain on the patient's chart. Corrected result: Previously reported as Negative on 01/14/2025 at 1923 EDT. Blood, Urine LAB URINALYSIS - AUTOMATED METHOD 01/16/2025 11:59 AM EDT [facility] Comment: ATTENTION - WRONG PATIENT: Please do not use for clinical decision making as these results do not belong to this patient. Due to regulatory guidelines, incorrect results are to remain on the patient's chart. Corrected result: Previously reported as Negative on 01/14/2025 at 1923 EDT. RBC, Urine LAB URINALYSIS - AUTOMATED METHOD 01/16/2025 11:59 AM EDT [facility] Comment: ATTENTION - WRONG PATIENT: Please do not use for clinical decision making as these results do not belong to this patient. Due to regulatory guidelines, incorrect results are to remain on the patient's chart. Corrected result: Previously reported as 0.3 /HPF on 01/14/2025 at 1923 EDT. WBC, Urine LAB URINALYSIS - AUTOMATED METHOD 01/16/2025 11:59 AM EDT [facility] Comment: ATTENTION - WRONG PATIENT: Please do not use for clinical decision making as these results do not belong to this patient. Due to regulatory guidelines, incorrect results are to remain on the patient's chart. Corrected result: Previously reported as 0.3 /HPF on 01/14/2025 at 1923 EDT. Squamous Epithelial, Urine LAB URINALYSIS - AUTOMATED METHOD 01/16/2025 11:59 AM EDT [facility] Comment: ATTENTION - WRONG PATIENT: Please do not use for clinical decision making as these results do not belong to this patient. Due to regulatory guidelines, incorrect results are to remain on the patient's chart. Corrected result: Previously reported as 27 /LPF on 01/14/2025 at 1923 EDT. Bacteria, Urine LAB URINALYSIS - AUTOMATED METHOD 01/16/2025 11:59 AM EDT [facility] Comment: ATTENTION - WRONG PATIENT: Please do not use for clinical decision making as these results do not belong to this patient. Due to regulatory guidelines, incorrect results are to remain on the patient's chart. Corrected result: Previously reported as Few /HPF on 01/14/2025 at 1923 EDT. Hyaline Casts, Urine LAB URINALYSIS - AUTOMATED METHOD 01/16/2025 11:59 AM EDT [facility] Comment: ATTENTION - WRONG PATIENT: Please do not use for clinical decision making [...] loretta Result - Final Performing Organization Address [facility]/ZIP Co de Phone Number [facility] [address] [place] [address], [place] [phone] * Culture urine (01/14/2025 12:00 AM EDT) Culture, Urine See comment 01/16/2025 1:24 PM EDT [facility] Urine Urine specimen obtained by clean catch procedure / Unknown 01/14/2025 01/14/2025 5:51 PM EDT Narrative [facility] - 01/16/2025 1:24 PM EDT Please disregard previously reported result. Specimen mislabeled. us Tashia Crocker MD LAB MICROBIOLOGY - GENER AL ORDERABLES Final Result Performing Organization Address [facility] Co de Phone Number [facility] [address] [place] [address], [place] [phone] documented in this encounter Visit Diagnoses Diagnosis Unspecified external cause status documented in this encounter Care Teams Linux System Engineer Relationship Specialty Start Date End Date Physician, No Pcp PCP - General 01/07/25 documented as of this encounter
--- OUTSIDE RECORDS SUMMARY | 2025-09-23 07:57 | XMS_ITS | Encounter Summary ---
Author Organization [facility] Address [address] [place] [address] Care Team Providers Care Academic Support Director Name Role Phone Physician, No Pcp Primary Care Provider Unavaila ble Encounter Details Date Type Department Care Team (Latest Contact Info) Description 01/15/2025 Lab Requisition [facility] - Main Lab [address] [place] [phone] Tashia Crocker MD [address] [phone] Encounter for gynecological examination (general) (routine) without [...] lesion or malignancy 01/16/2025 11:58 AM EDT [facility] [place] ([facility]) [facility] at 1158 EDT General Categorization Negative 01/16/2025 11:58 AM EDT [facility] Specimen Adequacy Satisfactory for evaluation, endocervical/martinez sformation zone component present 01/16/2025 11:58 AM EDT [facility] Pap Methodology Liquid Based Pap Test 01/16/2025 11:58 AM EDT [facility] Disclaimer The Pap test is a screening test which carries an inherent false negative rate. These test results should be correlated with the patient's clinical findings and history. This Pap test was processed using an automated screening system. Technical cytopathology services provided by [facility], at [address] [place] [address] (CLIA # [id number]/Marcie Holcomb MD, Director Regulatory Compliance.) 01/16/2025 11:58 AM T [facility] Console Pap Interpretation Reported 01/16/2025 11:58 AM [facility] Brushing/Spatula Cervix uteri structure / Unknown 01/14/2025 01/15/2025 7:29 AM EDT us Tashia Crocker MD LAB CYTOLOGY ORDERABLES Final Result [facility] [address] [place] [address], documented in this encounter Visit Diagnoses Diagnosis Encounter for gynecological examination (general) (routine) without abnormal findings documented in this encounter Care Teams Academic Support Director Relationship Specialty Start Date End Date Physician, No Pcp PCP - General 01/07/25 documented as of this encounter
--- OUTSIDE RECORDS SUMMARY | 2025-09-23 07:57 | XMS_ITS | Clinical Summary ---
Author Organization [facility] [place] [address] Phone Care Team Providers Care Hangar Attendant Name Role Phone Physician, No Pcp Primary [...] Health Maintenance Due Date Last Done Comments Colorectal Cancer Screening: Colonoscopy 1975 DTaP,Tdap,and Td Vaccines (1 - Tdap) 1994 HIV Screening 10/06/2022 Hepatitis C Screening 10/06/2022 Social Influencers of Health Screening 10/06/2022 Depression Screening 10/24/2024 Pneumococcal Vaccine: 50+ Years (1 of 1 - PCV) 2025 Zoster Vaccines (1 of 2) 2025 COVID-19 Vaccine (1 - season) 2025 Influenza Vaccine (#1) 2025 Breast Cancer Screening 01/05/2026 01/06/20 24, 12/29/2022, 12/20/2021, Additional history exists Cervical Cancer Screening: Pap Smear 01/15/2028 01/14/2025 RSV Immunization Adult Patients (1 - 1-dose 75+ series) 2050 Hepatitis B Vaccines Completed 03/13/2020, 01/09/2020, 11/05/2019 [...] intraepithelial lesion or malignancy 01/16/2025 11:58 AM [facility] at 1158 EDT General Categorization Negative 01/16/2025 11:58 AM [facility] Specimen Adequacy Satisfactory for evaluation, endocervical/martinez sformation zone component present 01/16/2025 11:58 AM EDT [facility] Pap Methodology Liquid Based Pap Test 01/16/2025 11:58 AM [facility] Disclaimer The Pap test is a screening test which carries an inherent false negative rate. These test results should be correlated with the patient's clinical findings and history. This Pap test was processed using an automated screening system. Technical cytopathology services provided by [facility], at [address] [place] [address], [place] [address] (CLIA # [id number]/Marice Holcomb MD, Podiatrist.) 01/16/2025 11:58 AM EDT [facility] ([facility]) [facility] Console Pap Interpretation Reported 01/16/2025 11:58 AM EDT [facility] Brushing/Spatula Cervix uteri structure / Unknown 01/14/2025 01/15/2025 7:29 AM EDT us Sam Crocker MD LAB CYTOLOGY ORDERABLES Final Result [facility]) [facility] [address] [place] [address], * GAUTAM SCREENING DIGITAL (01/06/2024 3:33 PM EDT) Anatomical Region Laterality Modality Mammography 01/06/2024 3:10 PM EDT Narrative 01/06/2024 3:33 PM EDT [facility] Diagnostic Imaging Department [address] [place] [address] Patient: NU KINGSLEY D.O.B./Age/Sex: 1975 - 48 - F Unit#: [id number] Location/Status: SPDIMAM/REG CLI Mnemonic/Ordering Site: [facility] Ordering Physician: SAM LRAKIN MD Gautam Screening Digital - 01/06/24 - 1521 Report Status:Signed EXAM: Gautam Screening Digital EXAM DATE AND TIME: 01/06/2024 3:22 PM HISTORY: Annual screening COMPARISON: Multiple exams dating back to 2016 TECHNIQUE: Bilateral digital breast tomosynthesis was performed in the CC and MLO projections. Computer aided detection with [employer] 3D 3.1 was employed. TISSUE DENSITY: b. [...] Procedure Note Melissa Tillman MD - 06/11/2024 [facility] Diagnostic Imaging Department [address] [place] [address] Patient: KINGSLEYNU D.O.B./Age/Sex: 1975 - 48 - F Unit#: [id number] Location/Status: [facility] CLI Mnemonic/Ordering Site: [facility] Ordering Physician: SAM LARKIN MD [facility] Screening Digital - 01/06/24 - 1521 Report Status:Signed EXAM: [facility] Screening Digital EXAM DATE AND TIME: 01/06/2024 3:22 PM HISTORY: Annual screening COMPARISON: Multiple exams dating back to 2016 TECHNIQUE: Bilateral digital breast tomosynthesis was performed in the CCand MLO projections. Computer aided detection with [employer] AI 3D 3.1was employed. TISSUE DENSITY: b. There [...] Most Recently Relevant to Health Maintenance [place] [address] [place] [address] [place] [address] Care Teams Hangar Attendant Relationship Specialty Start Date End Date Physician, No Pcp PCP - General 01/07/25
== END 2025-09-23 07:55 | disposition home or self-care (01) ==
LOC: HO.MAMMO 07:54
PROVIDERS: PCP Nurse Practitioner Family; Visit Provider Obstetrics & Gynecology
DX: N60.02 Solitary cyst of left breast (principal); N63.20 Unspecified lump in the left breast, unspecified quadrant
CPT/HCPCS: 76642

== ENCOUNTER → 2025-09-23 08:00 | Outpatient (BNV) | payer OTHER, SELFPAY | PROVIDERS: PCP Nurse Practitioner Family; Visit Provider Radiology Body Imaging | DX: N63.13 Unspecified lump in the right breast, lower outer quadrant (principal) | CPT/HCPCS: 76642 ==